=== PATIENT | male | born 1940 | race Caucasian/White ===

== ENCOUNTER 2018-10-16 04:32 | Observation (INO) | payer MEDICARE, OTHER ==
[2018-10-16 05:44] LABS: BASOPHIL % 0.2 % (0.0-0.4); Basophil (Absolute #) 0.01 (0-0.4); Eosinophil % 1.1 % (0.00-5.0); Eosinophil (Absolute #) 0.05 (0-0.5); Granulocyte Absolute (ANC) 3.12 (1.4-6.9); Granulocytes % 71.5 % (36.0-66.0); Hematocrit 40.6 % (42-50); Hemoglobin 13.4 gm/dl (12.5-18.0); Lymphocyte (Absolute #) 0.63 (1.0-4.6); Lymphocytes % 14.4 % (24.0-44.0); Mean Corpuscular Hemoglobin 27.4 pg (26-32); Mean Platelet Volume 9.9 fl (6-9.5); Monocyte (Absolute #) 0.56 (0.0-1.3); Monocytes % 12.8 % (0.0-12.0); Platelet Count 206 K/mm3 (150-450); Red Blood Count 4.89 M/mm3 (4.1-5.6); Red Cell Distribution Width 16.7 % (11.5-14.0); White Blood Count 4.4 K/mm3 (4.0-10.5)
[2018-10-16 05:52] LABS: Appearance CLEAR (CLEAR); Bilirubin NEGATIVE (NEGATIVE); Blood NEGATIVE Ery/ul (0-5); Glucose NEGATIVE (NEGATIVE); Ketones SMALL (NEGATIVE); Leukocyte Esterase NEGATIVE (NEGATIVE); Mucus SLIGHT /HPF (NEGATIVE); Nitrite NEGATIVE (NEGATIVE); Protein,Urine Dip NEGATIVE (Negative); Specific Gravity 1.016 (1.005-1.025); Urobilinogen 2 mg/dL (0-1)
[2018-10-16 05:52] LABS: ALBUMIN 4.2 g/dL (3.5-5.0); ALKALINE PHOSPHATASE 88 U/L (38-126); ANION GAP 13.6 MEQ/L (5-15); BLOOD UREA NITROGEN 16 mg/dL (9-20); CHLORIDE 97 mmol/L (98-107); Calcium 9.3 mg/dL (8.4-10.2); Carbon Dioxide 28 mmol/L (22-30); Creatinine 1 0.74 mg/dL (0.66-1.25); Glucose 105 mg/dL (74-106); SGOT/AST 22 U/L (17-59); SGPT/ALT 12 U/L (0-50); SODIUM 135 mmol/L (137-145); Total Protein 7.5 g/dL (6.3-8.2)
--- NOTE | 2018-10-16 06:55 | ERPHSYRPT ---
- History of Present Illness Source: patient Exam Limitations: clinical condition Patient Subjective Stated Complaint: patient was found on bathroom floor had soiled himself nad shirt covered in urine has no memeory of getting in there girlfriend says he has dementia states yesterday he was driving and forgot where he was and what he was doing Triage Nursing Assessment: patient able to answer questions appropriately, states he doesnt remember going to bathroom or how he ended up on floor not sure if he hit his head, no bumps bruises or bleeding noted, skin cool and dry lots of areas of flaky dry skin but it is intact, patient covered in fesces and urine when brought in by EMS states he doesnt know what happened, caregiver states she is unable to care for him he has become weaker and is romaing at nite nad she cannot get him up when falls or move him by herself. pulses present bilateral radius and pedal, lung sounds clear , diminished , bowel sounds present x4, hand claims examiner equal bialteral smile symetrical, trackign and pupils [email or web address]. Timing/Duration: today Severity: mild Character of Deficits: none Deficits: no difficulties Baseline Gait: walks w/o assistance Associated Symptoms: confusion Hx Tetanus, Diphtheria Vaccination/Date Given: Yes Hx Influenza Vaccination/Date Given: No Hx Pneumococcal Vaccination/Date Given: No Immunizations Up to Date: Yes <ORTEGA MCKEON - Last Filed: 10/16/18 06:38> <ELLIS STAUFFER - Last Filed: 10/16/18 07:32> - History of Present Illness Time Seen by Provider: 10/16/18 04:50 Physician History: PATIENT WITH A HISTORY OF DEMENTIA OVER THE PAST 4 YEARS AND SEIZURE DISORDER WAS FOUND ON BATHROOM FLOOR COVERED IN URINE. HAS INCREASING CONFUSION OVER THE PAST WEEK. DENIES HEADACHE OR NECK PAIN. STATES HE IS UNSURE HOW HE ARRIVED ON THE FLOOR (ORTEGA MCKEON) Allergies/Adverse Reactions: No Known Drug Allergies Allergy (Verified 10/16/18 07:30) Home Medications: Aspirin 325 mg PO DAILY 12/21/14 [History] - Review of Systems Constitutional: No Fever, No Chills Eyes: No Symptoms Ears, Nose, & Throat: No Symptoms Respiratory: No Symptoms, No Cough, No Dyspnea Cardiac: No Symptoms, No Chest Pain, No Edema, No Syncope Abdominal/Gastrointestinal: No Symptoms, No Abdominal Pain, No Nausea, No Vomiting, No Diarrhea Genitourinary Symptoms: No Symptoms, No Dysuria Musculoskeletal: No Symptoms, No Back Pain, No Neck Pain Skin: No Rash Neurological: No Symptoms, No Dizziness, No Focal Weakness, No Sensory Changes Psychological: No Symptoms Endocrine: No Symptoms All Other Systems: Reviewed and Negative <ORTEGA MCKEON - Last Filed: 10/16/18 06:38> - Past Medical History Pertinent Past Medical History: No Neurological History: Seizures - Past Surgical History Past Surgical History: No - Social History Smoking Status: Current every day smoker How long have you smoked: 53 Exposure to second hand smoke: Yes Drug Use: other Patient Lives Alone: No <ORTEGA MCKEON Filed: 10/16/18 06:38> - Given Coma Scale Best Eye Response (Given): (4) open spontaneously Best Verbal Response (Given): (5) oriented Best Motor Response (Given): (6) obeys commands Kev Total: 15 - Physical Exam General Appearance: no apparent distress Eye Exam: bilateral eye: normal inspection, PERRL, EOMI Ears, Nose, Throat Exam: normal ENT inspection Neck Exam: normal inspection, non-tender, supple Respiratory: normal breath sounds, lungs clear, airway intact, No respiratory distress Cardiovascular: regular rate/rhythm Gastrointestinal: soft, normal bowel sounds, No tenderness, No distention Back Exam: normal inspection, normal range of motion Extremity Exam: normal inspection, normal range of motion, other (FULL RANGE OF MOTION BILAT HIPS WITHOUT PAIN, NONTENDER GREATER TROCHANTER), No pedal edema Peripheral Pulses: carotid (R): 2+, 0, carotid (L): 2+, 0, femoral (R): 2+, 0, femoral (L): 2+, 0, dorsalis-pedis (R): 2+, 0, dorsalis-pedis (L): 2+, 0 Mental Status: alert, cooperative (APPROPRIATE) transmission mechanic Exam: normal hearing Coordination/Gait: normal finger to nose, normal gait Motor/Sensory: no motor deficit DTR: bicep (R): 2+, bicep (L): 2+, tricep (R): 2+, tricep (L): 2+, knee (R): 2+ , knee (L): 2+, ankle (R): 2+, ankle (L): 2+ Skin Exam: normal color SpO2 Interpretation: normal SpO2: 96 <MIKEORTEGA MIR - Last Filed: 10/16/18 06:38> - Nursing Vital Signs Nursing Vital Signs: Initial Vital Signs Temperature 98.4 F 10/16/18 04:33 Pulse Rate 70 10/16/18 04:33 Respiratory Rate 20 10/16/18 04:33 Blood Pressure 180/119 10/16/18 04:33 O2 Sat by Pulse Oximetry 97 10/16/18 04:33 Pain Scale Pain Intensity 0 - Radiology Exams Chest X-ray Interpretation: Interpreted by me (COPD, NO EVIDENCE OF INFILTRATES) <MIKEORTEGA - Last Filed: 10/16/18 06:38> Ordered Tests: Active Orders 24 hr Category Date Time Status [employer] STAT Care 10/16/18 05:17 Active Cath for Specimen-Straight STAT Care 10/16/18 05:17 Active EKG-ER Only STAT Care 10/16/18 05:16 Active IV Insertion STAT Care 10/16/18 05:16 Active CERVICAL SPINE WO CONTRAST [CT] Stat Exams 10/16/18 05:19 Taken CHEST 1 VIEW (PORTABLE) Stat Exams 10/16/18 06:09 Taken HEAD WITHOUT CONTRAST [CT] Stat Exams 10/16/18 05:17 Taken CBC W DIFF Stat Lab 10/16/18 05:40 Completed CMP Stat Lab 10/16/18 05:40 Completed UA W/RFX UR CULTURE Stat Lab 10/16/18 05:30 Completed Transfer Order Routine Transfer 10/16/18 Ordered Lab/Rad Data: Laboratory Result Diagrams 10/16/18 05:40 10/16/18 05:40 Laboratory Results 10/16/18 10/16/18 10/16/18 Range/Units Unknown 05:40 05:40 WBC 4.4 (4.0-10.5) K/mm3 RBC 4.89 (4.1-5.6) M/mm3 Hgb 13.4 (12.5-18.0) gm/dl Hct 40.6 L (42-50) % MCV 83.0 (78-100) fl MCH 27.4 (26-32) pg MCHC 33.0 (32-36) g/dl RDW 16.7 H (11.5-14.0) % Plt Count 206 (150-450) K/mm3 MPV 9.9 H (6-9.5) fl Gran % 71.5 H (36.0-66.0) % Eos # (Auto) 0.05 (0-0.5) Absolute Lymphs (auto) 0.63 L (1.0-4.6) Absolute Monos (auto) 0.56 (0.0-1.3) Lymphocytes % 14.4 L (24.0-44.0) % Monocytes % 12.8 H (0.0-12.0) % Eosinophils % 1.1 (0.00-5.0) % Basophils % 0.2 (0.0-0.4) % Absolute Granulocytes 3.12 (1.4-6.9) Basophils # 0.01 (0-0.4) Sodium 135 L (137-145) mmol/L Potassium 4.0 (3.5-5.1) mmol/L Chloride 97 L (98-107) mmol/L Carbon Dioxide 28 (22-30) mmol/L Anion Gap 13.6 (5-15) MEQ/L BUN 16 (9-20) mg/dL Creatinine 0.74 (0.66-1.25) mg/dL Estimated GFR > 60.0 ML/MIN Glucose 105 (74-106) mg/dL Calcium 9.3 (8.4-10.2) mg/dL Total Bilirubin 0.70 (0.2-1.3) mg/dL AST 22 (17-59) U/L ALT 12 (0-50) U/L Alkaline Phosphatase 88 (38-126) U/L Serum Total Protein 7.5 (6.3-8.2) g/dL Albumin 4.2 (3.5-5.0) g/dL Urine Color (YELLOW) Urine Appearance (CLEAR) Urine pH (5-6) Ur Specific [place] (1.005-1.025) Urine Protein (Negative) Urine Ketones (NEGATIVE) Urine Blood (0-5) Gustavo/ul Urine Nitrite (NEGATIVE) Urine Bilirubin (NEGATIVE) Urine Urobilinogen (0-1) mg/dL Ur Leukocyte Esterase (NEGATIVE) Urine WBC (Auto) (0-5) /HPF Urine RBC (Auto) (0-2) /HPF U Epithel Cells (Auto) (FEW) /HPF Urine Bacteria (Auto) (NEGATIVE) /HPF Urine Mucus (Auto) (NEGATIVE) /HPF Urine Culture Reflexed (NO) Urine Glucose (NEGATIVE) mg/dL Phenytoin 8.0 L (10-20) ug/mL 10/16/18 Range/Units 05:30 WBC (4.0-10.5) K/mm3 RBC (4.1-5.6) M/mm3 Hgb (12.5-18.0) gm/dl Hct (42-50) % MCV (78-100) fl MCH (26-32) pg MCHC (32-36) g/dl RDW (11.5-14.0) % Plt Count (150-450) K/mm3 MPV (6-9.5) fl Gran % (36.0-66.0) % Eos # (Auto) (0-0.5) Absolute Lymphs (auto) (1.0-4.6) Absolute Monos (auto) (0.0-1.3) Lymphocytes % (24.0-44.0) % Monocytes % (0.0-12.0) % Eosinophils % (0.00-5.0) % Basophils % (0.0-0.4) % Absolute Granulocytes (1.4-6.9) Basophils # (0-0.4) Sodium (137-145) mmol/L Potassium (3.5-5.1) mmol/L Chloride (98-107) mmol/L Carbon Dioxide (22-30) mmol/L Anion Gap (5-15) MEQ/L BUN (9-20) mg/dL Creatinine (0.66-1.25) mg/dL Estimated GFR ML/MIN Glucose (74-106) mg/dL Calcium (8.4-10.2) mg/dL Total Bilirubin (0.2-1.3) mg/dL AST (17-59) U/L ALT (0-50) U/L Alkaline Phosphatase (38-126) U/L Serum Total Protein (6.3-8.2) g/dL Albumin (3.5-5.0) g/dL Urine Color YELLOW (YELLOW) Urine Appearance CLEAR (CLEAR) Urine pH 6.0 (5-6) Ur Specific [place] 1.016 (1.005-1.025) Urine Protein NEGATIVE (Negative) Urine Ketones SMALL (NEGATIVE) Urine Blood NEGATIVE (0-5) Gustavo/ul Urine Nitrite NEGATIVE (NEGATIVE) Urine Bilirubin NEGATIVE (NEGATIVE) Urine Urobilinogen 2 (0-1) mg/dL Ur Leukocyte Esterase NEGATIVE (NEGATIVE) Urine WBC (Auto) NONE (0-5) /HPF Urine RBC (Auto) NONE (0-2) /HPF U Epithel Cells (Auto) NONE (FEW) /HPF Urine Bacteria (Auto) NONE (NEGATIVE) /HPF Urine Mucus (Auto) SLIGHT (NEGATIVE) /HPF Urine Culture Reflexed NO (NO) Urine Glucose NEGATIVE (NEGATIVE) mg/dL Phenytoin (10-20) ug/mL - Progress Discussed with Dr.: Patsy (DISCUSSED WITH DR BOLANOS AT 0705 FOR OBSERVATION) <ORTEGA MCKEON - Last Filed: 10/16/18 06:38> - Progress Progress: improved Counseled pt/family regarding: lab results, diagnosis, rad results <ELLIS STAUFFER - Last Filed: 10/16/18 07:32> - Progress Progress Note: 10/16/18 07:05 PATIENT CARE ENDORSED TO DR STAUFFER (ORTEGA MCKEON) 10/16/18 07:22 ct scan head-no acute intracranial pathology (ELLIS STAUFFER) - Departure Departure Disposition: Observation Critical Care Time: No <ORTEGA MCKEON - Last Filed: 10/16/18 06:38> - Departure Time of Disposition: 07:23 <ELLIS STAUFFER - Last Filed: 10/16/18 07:32> - Departure Clinical Impression: Altered mental status Condition: Stable Referrals: MALLORY BOLANOS MD [Primary Care Provider] -
[2018-10-16] MEDS ORDERED: Zofran 4 MG/2 ML VIAL IV PRN (08:00)
[2018-10-16] MEDS ORDERED: TYLENOL 325 MG PO PRN (08:00)
--- NOTE | 2018-10-16 08:57 | XRAY ---
Indication: Found on bathroom floor. Possible fall. Multiple contiguous axial images obtained through the head without contrast. Comparison: February 12, 2015. Stable age-appropriate global atrophy, mild periventricular degenerative micro-ischemia bilaterally, remote right external capsule lacunar infarct, and remote left brain stem lacunar infarct. No acute intracranial hemorrhage, abnormal extra-axial fluid collection, or mass effect. Fourth ventricle is midline. Bony calvarium intact. Visualized paranasal sinuses and mastoid air cells are clear. Interval enlarging partially visualized 2.6 cm right posterior neck sebaceous cyst. Impression: Again nonacute senile brain including remote lacunar infarcts as detailed. Incidental right neck sebaceous cyst. Comment: Preliminary interpretation was made by C. No discrepancy. CT DI 60.26
--- NOTE | 2018-10-16 08:59 | XRAY ---
Indication: Found on bathroom floor. Possible fall. Multiple contiguous axial images obtained through the cervical spine. Sagittal and coronal reformatted images obtained. Comparison: None Age-related osteopenia. Axial images negative for acute fracture, suspicious bony lesions, or spinal canal stenosis. Mild/moderate multilevel degenerative endplate spurring and mild multilevel bilateral degenerative facet hypertrophy. Sagittal and coronal reformatted images demonstrates normal alignment with multilevel disc space narrowing. No acute compression fracture, subluxation, or jumped facet. Normal appearing craniocervical junction. Visualized noncontrasted soft tissues demonstrates mild scattered carotid calcifications bilaterally. Also markedly enlarged left thyroid lobe. Lung apices unremarkable. Impression: 1. Negative for acute fracture/subluxation. 2. Osteopenia and multilevel degenerative changes. 3. Incidental enlarged left thyroid lobe. Sonogram may yield further information if clinically warranted. Comment: Preliminary interpretation was made by [facility]. No discrepancy. CT DI 21.40
--- NOTE | 2018-10-16 09:02 | XRAY ---
Indication: Cough. Possible fall. Comparison: December 21, 2014. Portable apical lordotic chest again hyperinflated without focal infiltrate, consolidation, or large effusion. Heart is not enlarged. Descending aorta remains mildly tortuous. Bony thorax intact again with mild osteopenia and degenerative changes. Impression: Nonacute hyperinflated chest with chronic features.
--- NOTE | 2018-10-16 09:23 | PCM.HP ---
History of Present Illness - Chief Complaint Chief Complaint: altered mental status for 1 day History of Present Illness: is a 77 year old male.patient was found on bathroom floor had soiled himself nad shirt covered in urine has no memeory of getting in there girlfriend says he has dementia states yesterday he was driving and forgot where he was and what he was doing - Review of Systems Constitutional: Lethargy, Weakness, No Fever, No Chills Eyes: No Symptoms Ears, Nose, & Throat: No Symptoms Respiratory: No Cough, No Short Of Breath Cardiac: No Chest Pain, No Edema, No Syncope Abdominal/Gastrointestinal: No Abdominal Pain, No Nausea, No Vomiting, No Diarrhea Genitourinary Symptoms: No Dysuria Musculoskeletal: No Back Pain, No Neck Pain Skin: No Rash Neurological: No Dizziness, No Focal Weakness, No Sensory Changes Psychological: No Symptoms Endocrine: No Symptoms Hematologic/Lymphatic: No Symptoms Immunological/Allergic: No Symptoms Medications & Allergies Home Medications: Home Medication List Aspirin 325 mg PO DAILY 12/21/14 [History Confirmed 10/16/18] Clopidogrel Bisulfate 75 mg [PLAVIX 75 MG Tablet] 75 mg PO DAILY #30 tablet 12/23/14 [Rx Confirmed 10/16/18] Phenytoin Sod Extended 100 mg* [Dilantin 100 MG] 100 mg PO TID 10/16/18 [ History Confirmed 10/16/18] Allergies/Adverse Reactions: Allergies Allergy/AdvReac Type Severity Reaction Status Date / Time No Known Drug Allergies Allergy Verified 10/16/18 07:30 - Past Medical History Past Medical History: No Neurological History: Seizures ENT History: No Pertinent History Cardiac History: Coronary Artery Disease Respiratory History: No Pertinent History Endocrine Medical History: No Pertinent History Musculoskelatal History: No Pertinent History GI Medical History: No Pertinent History History: No Pertinent History Pyscho-Social History: No Pertinent History Male Reproductive Disorders: No Pertinent History - Past Surgical History Past Surgical History: No Neuro Surgical History: No Pertinent History Cardiac History: No Pertinent History Respiratory Surgery: No Pertinent History GI Surgical History: No Pertinent History Genitourinary Surgical Hx: No Pertinent History Musculskeletal Surgical Hx: No Pertinent History Male Surgical History: No Pertinent History - Social History Smoking Status: Current every day smoker How long have you smoked: 53 Exposure to second hand smoke: Yes Alcohol: Daily Drug Use: other - Physical Exam Vital Signs: Vital Signs - 24 hr Temp Pulse Resp BP Pulse Ox 10/16/18 08:18 97.9 F 73 19 194/96 92 L 10/16/18 08:00 97.9 F 73 19 194/96 92 L 10/16/18 07:13 67 16 182/94 96 10/16/18 07:05 96 10/16/18 06:13 70 18 154/92 96 10/16/18 04:33 98.4 F 70 20 180/119 97 General Appearance: mild distress, alert Neurologic Exam: alert, oriented x 3, cooperative, normal mood/affect, nml cerebellar function, nml station & gait, sensation nml, No motor deficits Eye Exam: PERRL/EOMI, eyes nml inspection Ears, Nose, Throat Exam: normal ENT inspection, TMs normal, pharynx normal, moist mucous membranes Neck Exam: normal inspection, non-tender, supple, full range of motion Respiratory Exam: normal breath sounds, lungs clear, No respiratory distress Cardiovascular Exam: regular rate/rhythm, normal heart sounds, normal peripheral pulses Gastrointestinal/Abdomen Exam: soft, normal bowel sounds, No tenderness, No mass Back Exam: normal inspection, normal range of motion, No CVA tenderness, No vertebral tenderness Extremity Exam: normal inspection, normal range of motion, pelvis stable Skin Exam: normal color, warm, dry, No rash Lymphatic Exam: No adenopathy Results - Labs Lab/Micro Results: Lab Results-Last 24 Hours 10/16/18 10/16/18 10/16/18 Range/Units 05:30 05:40 05:40 WBC 4.4 (4.0-10.5) K/mm3 RBC 4.89 (4.1-5.6) M/mm3 Hgb 13.4 (12.5-18.0) gm/dl Hct 40.6 L (42-50) % MCV 83.0 (78-100) fl MCH 27.4 (26-32) pg MCHC 33.0 (32-36) g/dl RDW 16.7 H (11.5-14.0) % Plt Count 206 (150-450) K/mm3 MPV 9.9 H (6-9.5) fl Gran % 71.5 H (36.0-66.0) % Eos # (Auto) 0.05 (0-0.5) Absolute Lymphs (auto) 0.63 L (1.0-4.6) Absolute Monos (auto) 0.56 (0.0-1.3) Lymphocytes % 14.4 L (24.0-44.0) % Monocytes % 12.8 H (0.0-12.0) % Eosinophils % 1.1 (0.00-5.0) % Basophils % 0.2 (0.0-0.4) % Absolute Granulocytes 3.12 (1.4-6.9) Basophils # 0.01 (0-0.4) Sodium 135 L (137-145) mmol/L Potassium 4.0 (3.5-5.1) mmol/L Chloride 97 L (98-107) mmol/L Carbon Dioxide 28 (22-30) mmol/L Anion Gap 13.6 (5-15) MEQ/L BUN 16 (9-20) mg/dL Creatinine 0.74 (0.66-1.25) mg/dL Estimated GFR > 60.0 ML/MIN Glucose 105 (74-106) mg/dL Calcium 9.3 (8.4-10.2) mg/dL Total Bilirubin 0.70 (0.2-1.3) mg/dL AST 22 (17-59) U/L ALT 12 (0-50) U/L Alkaline Phosphatase 88 (38-126) U/L Serum Total Protein 7.5 (6.3-8.2) g/dL Albumin 4.2 (3.5-5.0) g/dL Urine Color YELLOW (YELLOW) Urine Appearance CLEAR (CLEAR) Urine pH 6.0 (5-6) Ur Specific [place] 1.016 (1.005-1.025) Urine Protein NEGATIVE (Negative) Urine Ketones SMALL (NEGATIVE) Urine Blood NEGATIVE (0-5) Gustavo/ul Urine Nitrite NEGATIVE (NEGATIVE) Urine Bilirubin NEGATIVE (NEGATIVE) Urine Urobilinogen 2 (0-1) mg/dL Ur Leukocyte Esterase NEGATIVE (NEGATIVE) Urine WBC (Auto) NONE (0-5) /HPF Urine RBC (Auto) NONE (0-2) /HPF U Epithel Cells (Auto) NONE (FEW) /HPF Urine Bacteria (Auto) NONE (NEGATIVE) /HPF Urine Mucus (Auto) SLIGHT (NEGATIVE) /HPF Urine Culture Reflexed NO (NO) Urine Glucose NEGATIVE (NEGATIVE) mg/dL Phenytoin (10-20) ug/mL 10/16/18 Range/Units Unknown WBC (4.0-10.5) K/mm3 RBC (4.1-5.6) M/mm3 Hgb (12.5-18.0) gm/dl Hct (42-50) % MCV (78-100) fl MCH (26-32) pg MCHC (32-36) g/dl RDW (11.5-14.0) % Plt Count (150-450) K/mm3 MPV (6-9.5) fl Gran % (36.0-66.0) % Eos # (Auto) (0-0.5) Absolute Lymphs (auto) (1.0-4.6) Absolute Monos (auto) (0.0-1.3) Lymphocytes % (24.0-44.0) % Monocytes % (0.0-12.0) % Eosinophils % (0.00-5.0) % Basophils % (0.0-0.4) % Absolute Granulocytes (1.4-6.9) Basophils # (0-0.4) Sodium (137-145) mmol/L Potassium (3.5-5.1) mmol/L Chloride (98-107) mmol/L Carbon Dioxide (22-30) mmol/L Anion Gap (5-15) MEQ/L BUN (9-20) mg/dL Creatinine (0.66-1.25) mg/dL Estimated GFR ML/MIN Glucose (74-106) mg/dL Calcium (8.4-10.2) mg/dL Total Bilirubin (0.2-1.3) mg/dL AST (17-59) U/L ALT (0-50) U/L Alkaline Phosphatase (38-126) U/L Serum Total Protein (6.3-8.2) g/dL Albumin (3.5-5.0) g/dL Urine Color (YELLOW) Urine Appearance (CLEAR) Urine pH (5-6) Ur Specific [place] (1.005-1.025) Urine Protein (Negative) Urine Ketones (NEGATIVE) Urine Blood (0-5) Gustavo/ul Urine Nitrite (NEGATIVE) Urine Bilirubin (NEGATIVE) Urine Urobilinogen (0-1) mg/dL Ur Leukocyte Esterase (NEGATIVE) Urine WBC (Auto) (0-5) /HPF Urine RBC (Auto) (0-2) /HPF U Epithel Cells (Auto) (FEW) /HPF Urine Bacteria (Auto) (NEGATIVE) /HPF Urine Mucus (Auto) (NEGATIVE) /HPF Urine Culture Reflexed (NO) Urine Glucose (NEGATIVE) mg/dL Phenytoin 8.0 L (10-20) ug/mL - Radiology Impressions Radiology Exams & Impressions: Radiology Procedures Category Date Time Status CERVICAL SPINE WO CONTRAST [CT] Stat Exams 10/16/18 05:19 Completed CHEST 1 VIEW (PORTABLE) Stat Exams 10/16/18 06:09 Completed HEAD WITHOUT CONTRAST [CT] Stat Exams 10/16/18 05:17 Completed Assessment/Plan (1) Altered mental status Current Visit: Yes Status: Acute Qualifiers: Altered mental status type: disorientation Qualified Code(s): R41.0 - Disorientation, unspecified Code(s): R41.82 - ALTERED MENTAL STATUS, UNSPECIFIED (2) Chronic cerebral ischemia Current Visit: No Status: Chronic Code(s): I67.82 - CEREBRAL ISCHEMIA
[2018-10-16] MEDS ORDERED: NON-FORMULARY ITEM (Aspirin [Aspirin] 325 MG) PO SCH (10:00)
[2018-10-16] MEDS: Sodium Chloride 0.9% 1000 ML 1,000 ML IV SCH (10:14)
[2018-10-16] MEDS: ENOXAPARIN SODIUM SQ SCH (10:54)
[2018-10-16] MEDS: Ecotrin 325 MG PO SCH (10:54)
[2018-10-16] MEDS: Dilantin 100 MG PO SCH ×3 (10:54→22:59)
[2018-10-16] MEDS: PLAVIX 75 MG Tablet PO SCH (10:55)
[2018-10-16] MEDS: Pepcid 20 MG PO SCH ×2 (10:55→22:59)
[2018-10-16] MEDS: Ativan 2 MG/1 ML VIAL IV PRN ×2 (18:51→22:59)
[2018-10-17] MEDS: Sodium Chloride 0.9% 1000 ML 1,000 ML IV SCH (03:57)
[2018-10-17 05:55] LABS: BASOPHIL % 0.2 % (0.0-0.4); Basophil (Absolute #) 0.01 (0-0.4); Eosinophil % 0.5 % (0.00-5.0); Eosinophil (Absolute #) 0.03 (0-0.5); Granulocyte Absolute (ANC) 4.26 (1.4-6.9); Granulocytes % 66.4 % (36.0-66.0); Hematocrit 38.2 % (42-50); Hemoglobin 12.5 gm/dl (12.5-18.0); Lymphocyte (Absolute #) 1.23 (1.0-4.6); Lymphocytes % 19.2 % (24.0-44.0); Mean Corpuscular Hemoglobin 27.2 pg (26-32); Mean Corpuscular Hgb Concent. 32.7 g/dl (32-36); Mean Platelet Volume 9.8 fl (6-9.5); Monocyte (Absolute #) 0.88 (0.0-1.3); Monocytes % 13.7 % (0.0-12.0); Platelet Count 178 K/mm3 (150-450); Red Cell Distribution Width 16.8 % (11.5-14.0); White Blood Count 6.4 K/mm3 (4.0-10.5)
[2018-10-17 06:03] LABS: ALBUMIN 3.4 g/dL (3.5-5.0); ALKALINE PHOSPHATASE 66 U/L (38-126); ANION GAP 8.3 MEQ/L (5-15); BLOOD UREA NITROGEN 19 mg/dL (9-20); CHLORIDE 102 mmol/L (98-107); Calcium 8.7 mg/dL (8.4-10.2); Carbon Dioxide 28 mmol/L (22-30); Creatinine 1 0.78 mg/dL (0.66-1.25); Glucose 108 mg/dL (74-106); Potassium 3.8 mmol/L (3.5-5.1); SGOT/AST 27 U/L (17-59); SGPT/ALT 11 U/L (0-50); SODIUM 135 mmol/L (137-145); Total Protein 6.3 g/dL (6.3-8.2)
[2018-10-17] MEDS: Pepcid 20 MG PO SCH (09:00)
[2018-10-17] MEDS: PLAVIX 75 MG Tablet PO SCH (09:00)
[2018-10-17] MEDS: Ecotrin 325 MG PO SCH (09:00)
[2018-10-17] MEDS: ENOXAPARIN SODIUM SQ SCH (09:00)
[2018-10-17] MEDS: Dilantin 100 MG PO SCH ×2 (09:00→15:13)
--- NOTE | 2018-10-17 12:10 | PCM.DS ---
Discharge Summary Date of Admission: 10/16/18 07:55 Admitting Physician: MALLORY BOLANOS Primary Care Provider: MALLORY BOLANOS Allergies Allergies No Known Drug Allergies Allergy (Verified 10/16/18 07:30) Hospital Summary - Hospital Course Hospital Course: Chief Complaint Diagnosis altered mental status for 1 day Allergies Allergy/AdvReac Type Severity Reaction Status Date / Time No Known Drug Allergies Allergy Verified 10/16/18 07:30 Vital Signs (Last 24 hours) Temp Pulse Resp BP Pulse Ox 10/17/18 07:39 98.8 F 84 22 138/82 96 10/17/18 04:00 98.9 F 66 17 150/74 92 L 10/17/18 00:15 102 F 90 17 138/69 90 L 10/16/18 15:59 99.1 F 86 19 185/80 90 L Home Medications Medication Instructions Recorded Confirmed Last Taken Type Phenytoin Sod Extended 100 mg* 100 mg PO TID 10/16/18 10/16/18 10/15/18 History [Dilantin 100 MG] Current Medications Generic Name Dose Route Start Last Admin Trade Name Freq PRN Reason Stop Dose Admin Acetaminophen 650 mg 10/16/18 08:00 10/17/18 00:24 Tylenol 325 Mg PO 11/15/18 07:59 650 mg Q6H PRN PRN Administration PAIN AND/OR FEVER Aspirin 325 mg 10/16/18 10:00 10/17/18 09:00 Ecotrin 325 Mg PO 11/15/18 09:59 325 mg DAILY LEW Administration Clopidogrel Bisulfate 75 mg 10/16/18 10:00 10/17/18 09:00 Plavix 75 Mg Tablet PO 11/15/18 09:59 75 mg DAILY LEW Administration Enoxaparin Sodium 40 mg 10/16/18 10:00 10/17/18 09:00 Enoxaparin Sodium SQ 11/15/18 09:59 40 mg DAILY LEW Administration Famotidine 20 mg 10/16/18 10:00 10/17/18 09:00 Pepcid 20 Mg PO 11/15/18 09:59 20 mg BID LEW Administration Sodium Chloride 1,000 mls @ 50 mls/hr 10/16/18 08:00 10/17/18 03:57 Sodium Chloride 0.9% 1000 Ml IV 11/15/18 07:59 50 mls/hr .Q20H LEW Administration Lorazepam 1 mg 10/16/18 08:00 10/16/18 18:51 Ativan 2 Mg/1 Ml Vial IV 11/15/18 07:59 1 mg Q4H PRN PRN Administration ANXIETY Ondansetron HCl 4 mg 10/16/18 08:00 Zofran 4 Mg/2 Ml Vial IV 11/15/18 07:59 Q6H PRN PRN NAUSEA/VOMITING Phenytoin Sodium 100 mg 10/16/18 10:00 10/17/18 09:00 Dilantin 100 Mg PO 11/15/18 09:59 100 mg TID LEW Administration Discontinued Medications Generic Name Dose Route Start Last Admin Trade Name Freq PRN Reason Stop Dose Admin Influenza Virus Vaccine 180 mcg 10/17/18 09:00 10/17/18 08:58 Fluzone High-Dose Syr IM 10/17/18 09:01 180 mcg .ONCE ONE Administration Intake & Output (Last 24 hours) 10/15/18 10/16/18 10/17/18 10/18/18 11:59 11:59 11:59 11:59 Intake Total 1403 Output Total 320 Balance 1083 Weight 81.647 kg 78 kg Microbiology Results (Last 24 hours) 10/16/18 05:30 Catherized Urine Culture - Preliminary NO GROWTH TO DATE Laboratory Results (Last 24 hours) 10/17/18 10/17/18 10/17/18 05:10 05:10 05:10 WBC 6.4 RBC 4.60 Hgb 12.5 Hct 38.2 L MCV 83.0 MCH 27.2 MCHC 32.7 RDW 16.8 H Plt Count 178 MPV 9.8 H Gran % 66.4 H Eos # (Auto) 0.03 Absolute Lymphs (auto) 1.23 Absolute Monos (auto) 0.88 Lymphocytes % 19.2 L Monocytes % 13.7 H Eosinophils % 0.5 Basophils % 0.2 Absolute Granulocytes 4.26 Basophils # 0.01 Sodium 135 L Potassium 3.8 Chloride 102 Carbon Dioxide 28 Anion Gap 8.3 BUN 19 Creatinine 0.78 Estimated GFR > 60.0 Glucose 108 H Calcium 8.7 Magnesium 2.0 Total Bilirubin 0.50 AST 27 ALT 11 Alkaline Phosphatase 66 Serum Total Protein 6.3 Albumin 3.4 L Orders (Last 24 hours) Category Date Time Status Discharge Routine Discharge 10/17/18 Ordered CBC W DIFF AM.LAB Lab 10/17/18 05:10 Completed CMP AM.LAB Lab 10/17/18 05:10 Completed MAGNESIUM Stat Lab 10/17/18 05:10 Completed Flu Vacc [id number](65Yr Up)/Pf [Fluzone High-Dose 2018- Med 10/17/18 09:00 Discontinued 19 Syr] 180 mcg IM .ONCE ONE Patient Care Notes (Last 24 hours) 10/17/18 01:34 Nursing Note by Irasema Griffin Temp 99.8F orally after PO tylenol. SEE EMAR. Initialized on 10/17/18 01:34 - END OF NOTE 10/17/18 00:19 Nursing Note by Irasema Griffin notified of Temp 102.0F orally. Doctor does not wish to draw any lactic/blood cultures or start any antibiotics at this time. Other vital signs wnl. No new orders received at this time other than to administer PRN tylenol and monitor temp with routine vitals. Will continue to monitor. Initialized on 10/17/18 00:19 - END OF NOTE 10/16/18 18:53 Nursing Note by Jacquelyn Holcomb pt becoming more agitated. not wanting to sit up in chair and not wanting to get back in bed. just standing in middle of room pulling at IV. while trying to get pt not to pull at iv tubing he made a motion as if to swing at me. finally was able to get pt back in bed, medicated with ativan 1mg iv. Initialized on 10/16/18 18:53 - END OF NOTE 10/16/18 17:37 Occupational Therapy Note by Kay Walker OT order received from . OTR performed chart review and coordinated with IDT and deferred to Physical Therapy. Mr. Garcia anticipated to discharge home tomorrow with Home Health Services and has been educated on recommended AD by Physical Therapy at this time. No further inpatient skilled OT services warranted for Mr. Garcia at this time. Initialized on 10/16/18 17:37 - END OF NOTE 10/16/18 17:00 (created 10/17/18 11:54) Case Management Note by aTty Hand SPOKE WITH PARAG, PT'S SON, VIA PHONE. PARAG REPORTS THAT PT WILL HAVE TO GO HOME WITH [facility], UNTIL HE CAN GET TO [facility] TO ASSESS PT'S SITUATION. REPORTS THAT IF PT'S MENTAL STATUS DOES NOT GET BETTER THEN HE WILL BE LOOKING AT POSSIBLY MOVING HIM TO [facility], WHICH IS PT'S SONS HOME [facility]. REPORTS THAT AT THIS TIME, HE FEELS THAT THIS IS THE BEST DISCHARGE PLAN. REPORTS THAT HE WILL CALL PT'S GIRLFRIEND, BELLA AND DISCUSS. REPORTS THAT PT AND BELLA HAVE LIVED TOGETHER FOR 20+ YEARS. Initialized on 10/17/18 11:54 - END OF NOTE 10/16/18 15:50 (created 10/17/18 11:50) Case Management Note by Taty Hand SPOKE WITH PT'S GIRLFRIEND REGARDING NEEDS THAT PT HAS ON DISCHARGE. GIRLFRIEND , BELLA, REPORTS THAT HE HAS INCREASINGLY BECOME MORE CONFUSED AND WEAK. REPORTS THAT SHE FEELS THAT HE NEEDS TO GO TO LONG TERM FOR REHAB STAY. DISCUSSED THAT PT IS OBSERVATION STATUS, DOES NOT MEET INPT CRITERIA - AND [facility] WOULD NOT PAY FOR REHAB STAY. BELLA REPORTS THAT THEY CAN NOT PAY FOR REHAB. DISCUSSED HOME WITH HOME HEALTH CARE. BELLA REPORTS THAT SHE DOES NOT FEEL THAT THIS WILL BE ENOUGH SUPPORT. REPORTS THAT SHE WILL TALK WITH PARAG, PT'S SON, WHO WILL BE COMING TO [facility] THIS WEEKEND. Initialized on 10/17/18 11:50 - END OF NOTE - Vitals & Intake/Output Vital Signs: Vital Signs Temperature 98.8 F 10/17/18 07:39 Pulse Rate 84 10/17/18 07:39 Respiratory Rate 22 10/17/18 07:39 Blood Pressure 138/82 10/17/18 07:39 O2 Sat by Pulse Oximetry 96 10/17/18 07:39 Intake & Output: Intake & Output 10/15/18 10/16/18 10/17/18 10/18/18 11:59 11:59 11:59 11:59 Intake Total 1403 Output Total 320 Balance 1083 Weight 81.647 kg 78 kg - Lab Result Diagrams: 10/17/18 05:10 10/17/18 05:10 Lab Results-Last 24 Hrs: Lab Results-Last 24 Hours 0310/17/18 10/17/18 Range/Units 05:10 05:10 05:10 WBC 6.4 (4.0-10.5) K/mm3 RBC 4.60 (4.1-5.6) M/mm3 Hgb 12.5 (12.5-18.0) gm/dl Hct 38.2 L (42-50) % MCV 83.0 (78-100) fl MCH 27.2 (26-32) pg MCHC 32.7 (32-36) g/dl RDW 16.8 H (11.5-14.0) % Plt Count 178 (150-450) K/mm3 MPV 9.8 H (6-9.5) fl Gran % 66.4 H (36.0-66.0) % Eos # (Auto) 0.03 (0-0.5) Absolute Lymphs (auto) 1.23 (1.0-4.6) Absolute Monos (auto) 0.88 (0.0-1.3) Lymphocytes % 19.2 L (24.0-44.0) % Monocytes % 13.7 H (0.0-12.0) % Eosinophils % 0.5 (0.00-5.0) % Basophils % 0.2 (0.0-0.4) % Absolute Granulocytes 4.26 (1.4-6.9) Basophils # 0.01 (0-0.4) Sodium 135 L (137-145) mmol/L Potassium 3.8 (3.5-5.1) mmol/L Chloride 102 (98-107) mmol/L Carbon Dioxide 28 (22-30) mmol/L Anion Gap 8.3 (5-15) MEQ/L BUN 19 (9-20) mg/dL Creatinine 0.78 (0.66-1.25) mg/dL Estimated GFR > 60.0 ML/MIN Glucose 108 H (74-106) mg/dL Calcium 8.7 (8.4-10.2) mg/dL Magnesium 2.0 (1.6-2.3) mg/dL Total Bilirubin 0.50 (0.2-1.3) mg/dL AST 27 (17-59) U/L ALT 11 (0-50) U/L Alkaline Phosphatase 66 (38-126) U/L Serum Total Protein 6.3 (6.3-8.2) g/dL Albumin 3.4 L (3.5-5.0) g/dL Micro Results-Entire Visit: Microbiology 10/16/18 05:30 Urine Culture - Preliminary Catherized NO GROWTH TO DATE - Radiology Exams Ordered Rad Exams-Entire Visit: Radiology Procedures Category Date Time Status CERVICAL SPINE WO CONTRAST [CT] Stat Exams 10/16/18 05:19 Completed CHEST 1 VIEW (PORTABLE) Stat Exams 10/16/18 06:09 Completed HEAD WITHOUT CONTRAST [CT] Stat Exams 10/16/18 05:17 Completed - Procedures and Test Procedures and Tests throughout Hospitalization: Therapy Orders & Screens 10/16/18 08:00 OT Eval and Treat ( Order) ROUTINE Comment: Consulting Provider: Physician Instructions: Reason For Exam: PT Eval & Treat ( Order) ROUTINE Reason for Eval:: strengthening and transfer Diagnosis: altered mental status 10/16/18 08:27 PT Screen per Nursing Assess ONCE Comment: Protocol Order Physician Instructions: Greater than 3 points order PT Admission Screenin Reason For Exam: Triggered on Admission Diagnosis: altered mental status Open Wound/Cellutlitis/Pressure Ulcers: No Acute Fx/ORIF/Change in wt bearing status: No Severe MUSCULOSKELETAL pain: No ADL Dysfunction: Yes Acute CVA w/Hemiparesis/Hemiplegia: No Decreased Functional Mobility/Strength: Yes Sprain/Strain: No Acute Post-op Mobility Dysfunction: No Total Points: 4 Discharge Exam General Appearance: no apparent distress, alert Neurologic Exam: alert, oriented x 3, cooperative, normal mood/affect, nml cerebellar function, sensation nml, No motor deficits Skin Exam: normal color, warm, dry Eye Exam: PERRL, EOMI, eyes nml inspection Ears, Nose, Throat Exam: normal ENT inspection, pharynx normal, moist mucous membranes Neck Exam: normal inspection, non-tender, supple, full range of motion Respiratory Exam: normal breath sounds, lungs clear, No respiratory distress Cardiovascular Exam: regular rate/rhythm, normal heart sounds Gastrointestinal/Abdomen Exam: soft, No tenderness, No mass Extremity Exam: normal inspection, normal range of motion Back Exam: normal inspection, normal range of motion, No CVA tenderness, No vertebral tenderness Male Genitalia Exam: deferred Rectal Exam: deferred Final Diagnosis/Problem List - Final Discharge Diagnosis/Problem (1) Altered mental status Current Visit: Yes Status: Acute Code(s): R41.82 - ALTERED MENTAL STATUS, UNSPECIFIED (2) Chronic cerebral ischemia Current Visit: Yes Status: Chronic Code(s): I67.82 - CEREBRAL ISCHEMIA - Discharge Discharge Date: 10/17/18 Disposition: Home, Self-Care Condition: Stable Prescriptions: Continue Aspirin 325 mg PO DAILY Clopidogrel Bisulfate 75 mg [PLAVIX 75 MG Tablet] 75 mg PO DAILY #30 tablet Phenytoin Sod Extended 100 mg* [Dilantin 100 MG] 100 mg PO TID Instructions: Altered Mental Status (DC) Additional Instructions: [facility] WILL CALL YOU TO ARRANGE YOUR FIRST VISIT. NO DRIVING, NO SMOKING. Follow up with: MALLORY BOLANOS MD [Primary Care Provider] - 10/25/18 9:15 am (at [place])
[2018-10-17 12:18] VITALS: BP 126/80; PULSE 86; O2SAT 95
== END 2018-10-17 16:15 | disposition home health service (06) ==
LOC: ED 04:32 → ICU 07:55
PROVIDERS: ADMIT General Practice; ATTEND General Practice
DX: R41.82 Altered mental status, unspecified (principal); I67.82 Cerebral ischemia; R53.83 Other fatigue; R53.1 Weakness; Z79.01 Long term (current) use of anticoagulants; Z79.899 Other long term (current) drug therapy; W19.XXXA Unspecified fall, initial encounter; Y92.002 Bathroom of unspecified non-institutional (private) residence as the place of occurrence of the external cause; F17.200 Nicotine dependence, unspecified, uncomplicated
CPT/HCPCS: 36000; 36415; 70450; 71045; 72125; 80053; 80185; 81001; 83735; 85025; 87086; 93005; 93041; 97161; 97530; 99285; G0008; G0378; P9612; 90662; J1650; J2060; A9270-GY

== ENCOUNTER 2018-12-23 16:07 | Observation (INO) | payer MEDICARE, OTHER ==
[2018-12-23] MEDS ORDERED: Sodium Chloride 0.9% 1000 ML 1,000 ML IV STA (16:26)
[2018-12-23] MEDS ORDERED: Sodium Chloride 0.9% 1000 ML 1,000 ML ONE (16:30)
--- NOTE | 2018-12-23 16:41 | ERPHSYRPT ---
- History of Present Illness Time Seen by Provider: 12/23/18 16:38 Source: EMS, detention records Exam Limitations: no limitations Patient Subjective Stated Complaint: EMS REPORTS THAT [facility] CALLED THEM D/T PT FALLING MULTIPLE TIMES TODAY AND URINATING ON SELF WHILE DOWN ON FLOOR. PT REPORTS PAIN TO LEFT LEG, UNABLE TO RATE OR SPECIFY LOCATION. Triage Nursing Assessment: ORIENTED TO NAME. UNABLE TO STATE YEAR OR PLACE OTHER THAN TOWN. WITHDRAWS TO PAIN WITH LEFT LEG. DENIES OTHER PAIN. Physician History: 78-year-old male with significant past medical history of seizure disorder and earlier examined dementia was living at detention where detention nurse found him confused and having a multiple falls in last 2-3 days. So patient was brought into the emergency room. Patient is alert, awake, oriented to less and person. Patient denies any complaint. Timing/Duration: day(s) (2-3 days) Associated Symptoms: denies symptoms Allergies/Adverse Reactions: No Known Drug Allergies Allergy (Verified 10/16/18 07:30) Home Medications: Aspirin 325 mg PO DAILY 12/21/14 [History] Phenytoin Sod Extended 100 mg* [Dilantin 100 MG] 100 mg PO TID 10/16/18 [ History] Hx Tetanus, Diphtheria Vaccination/Date Given: Yes Hx Influenza Vaccination/Date Given: Yes Hx Pneumococcal Vaccination/Date Given: No - Review of Systems Constitutional: No Fever, No Chills Eyes: No Symptoms Ears, Nose, & Throat: No Symptoms Respiratory: No Cough, No Dyspnea Cardiac: No Chest Pain, No Edema, No Syncope Abdominal/Gastrointestinal: No Abdominal Pain, No Nausea, No Vomiting, No Diarrhea Genitourinary Symptoms: No Dysuria Musculoskeletal: Fall, No Back Pain, No Neck Pain Skin: No Rash Neurological: Gait Changes, No Dizziness, No Focal Weakness, No Seizure, No Sensory Changes Psychological: No Symptoms Endocrine: No Symptoms All Other Systems: Reviewed and Negative - Past Medical History Pertinent Past Medical History: No Neurological History: Seizures ENT History: No Pertinent History Cardiac History: Coronary Artery Disease Respiratory History: No Pertinent History Endocrine Medical History: No Pertinent History Musculoskeletal History: No Pertinent History GI Medical History: No Pertinent History History: No Pertinent History Psycho-Social History: No Pertinent History Male Reproductive Disorders: No Pertinent History - Past Surgical History Past Surgical History: No Neuro Surgical History: No Pertinent History Cardiac: No Pertinent History Respiratory: No Pertinent History Gastrointestinal: No Pertinent History Genitourinary: No Pertinent History Musculoskeletal: No Pertinent History Male Surgical History: No Pertinent History - Social History Smoking Status: Current every day smoker How long have you smoked: 53 Exposure to second hand smoke: Yes Drug Use: other Patient Lives Alone: No - Nursing Vital Signs Nursing Vital Signs: Initial Vital Signs Temperature 98.2 F 12/23/18 16:07 Pulse Rate 75 12/23/18 16:07 Respiratory Rate 16 12/23/18 16:07 Blood Pressure 232/96 12/23/18 16:07 O2 Sat by Pulse Oximetry 96 12/23/18 16:07 - Physical Exam General Appearance: no apparent distress, alert Eye Exam: PERRL/EOMI, eyes nml inspection Ears, Nose, Throat Exam: normal ENT inspection, TMs normal, pharynx normal, moist mucous membranes Neck Exam: normal inspection, non-tender, supple, full range of motion Respiratory Exam: normal breath sounds, lungs clear, No respiratory distress Cardiovascular Exam: regular rate/rhythm, normal heart sounds, normal peripheral pulses Gastrointestinal/Abdomen Exam: soft, normal bowel sounds, No tenderness, No mass Back Exam: normal inspection, normal range of motion, No CVA tenderness, No vertebral tenderness Extremity Exam: normal inspection, normal range of motion, pelvis stable Neurologic Exam: alert, oriented x 3, cooperative, normal mood/affect, nml cerebellar function, nml station & gait, sensation nml, No motor deficits Skin Exam: normal color, warm, dry, No rash Lymphatic Exam: No adenopathy SpO2: 96 - Course Nursing assessment & vital signs reviewed: Yes EKG Interpreted by Me: Sinus Rhythm - Radiology Exams Chest X-ray Interpretation: Reviewed by me - CT Exams Head CT Interpretation: Tele-radiologist Report (senile changes) Ordered Tests: Active Orders 24 hr Category Date Time Status Cello Teacher STAT Care 12/23/18 16:27 Active EKG-ER Only STAT Care 12/23/18 16:26 Active IV Insertion STAT Care 12/23/18 16:26 Active Oxygen-ED Only Nasal Cannula 2 lpm Care 12/23/18 16:26 Active CHEST 1 VIEW (PORTABLE) Stat Exams 12/23/18 16:27 Taken HEAD WITHOUT CONTRAST [CT] Stat Exams 12/23/18 16:27 Taken CBC W DIFF Stat Lab 12/23/18 16:41 Completed CMP Stat Lab 12/23/18 16:41 Completed Medication Summary Discontinued Medications Generic Name Dose Route Start Last Admin Trade Name Coco PRN Reason Stop Dose Admin Fosphenytoin Sodium Confirm 12/23/18 17:35 Cerebyx 50 Mg/Ml Administered 12/23/18 17:36 Dose 500 mg .ROUTE .STK-MED ONE Sodium Chloride 1,000 mls @ 999 mls/hr 12/23/18 16:26 12/23/18 17:41 Sodium Chloride 0.9% 1000 Ml IV 12/23/18 17:26 Infused .Q1H1M STA Infusion Sodium Chloride Confirm 12/23/18 16:30 Sodium Chloride 0.9% 1000 Ml Administered 12/23/18 16:31 Dose 1,000 mls @ ud .ROUTE .STK-MED ONE Fosphenytoin Sodium 500 mg/ 110 mls @ 300 mls/hr 12/23/18 17:10 12/23/18 17: 45 Sodium Chloride IV 12/23/18 17:31 300 mls/hr STAT ONE Administration Sodium Chloride Confirm 12/23/18 17:35 Sodium Chloride 0.9% 100 Ml Ivpb Administered 12/23/18 17:36 Dose 100 mls @ ud IV .STK-MED ONE Lab/Rad Data: Laboratory Result Diagrams 12/23/18 16:41 12/23/18 16:41 Laboratory Results 12/23/18 12/23/18 12/23/18 Range/Units 16:41 16:41 16:41 WBC 7.7 (4.0-10.5) K/mm3 RBC 4.40 (4.1-5.6) M/mm3 Hgb 12.4 L (12.5-18.0) gm/dl Hct 37.2 L (42-50) % MCV 84.5 (78-100) fl MCH 28.1 (26-32) pg MCHC 33.3 (32-36) g/dl RDW 18.2 H (11.5-14.0) % Plt Count 226 (150-450) K/mm3 MPV 9.7 H (6-9.5) fl Gran % 71.5 H (36.0-66.0) % Eos # (Auto) 0.12 (0-0.5) Absolute Lymphs (auto) 1.31 (1.0-4.6) Absolute Monos (auto) 0.73 (0.0-1.3) Lymphocytes % 17.0 L (24.0-44.0) % Monocytes % 9.5 (0.0-12.0) % Eosinophils % 1.6 (0.00-5.0) % Basophils % 0.4 (0.0-0.4) % Absolute Granulocytes 5.51 (1.4-6.9) Basophils # 0.03 (0-0.4) Sodium 139 (137-145) mmol/L Potassium 3.8 (3.5-5.1) mmol/L Chloride 103 (98-107) mmol/L Carbon Dioxide 29 (22-30) mmol/L Anion Gap 11.3 (5-15) MEQ/L BUN 15 (9-20) mg/dL Creatinine 0.67 (0.66-1.25) mg/dL Estimated GFR > 60.0 ML/MIN Glucose 94 (74-106) mg/dL Calcium 9.4 (8.4-10.2) mg/dL Total Bilirubin 0.50 (0.2-1.3) mg/dL AST 20 (17-59) U/L ALT 13 (0-50) U/L Alkaline Phosphatase 86 (38-126) U/L Serum Total Protein 6.9 (6.3-8.2) g/dL Albumin 3.8 (3.5-5.0) g/dL Phenytoin 7.3 L (10-20) ug/mL - Progress Progress: improved Discussed with Dr.: Patsy Gotti Will see patient in: hospital (observation) Counseled pt/family regarding: lab results, diagnosis, need for follow-up, rad results - Departure Departure Disposition: Observation Clinical Impression: Chronic cerebral ischemia, Falls frequently, Subtherapeutic serum dilantin level Altered mental status Qualifiers: Altered mental status type: transient alteration of awareness Qualified Code(s) : R40.4 - Transient alteration of awareness Condition: Stable Critical Care Time: Yes Critical Care Time(excluding separately billable procedures): 30-74 minutes Referrals: MALLORY BOLANOS MD [Primary Care Provider] - Instructions: Dementia (DC)
[2018-12-23 16:47] LABS: BASOPHIL % 0.4 % (0.0-0.4); Basophil (Absolute #) 0.03 (0-0.4); Eosinophil % 1.6 % (0.00-5.0); Eosinophil (Absolute #) 0.12 (0-0.5); Granulocyte Absolute (ANC) 5.51 (1.4-6.9); Granulocytes % 71.5 % (36.0-66.0); Hematocrit 37.2 % (42-50); Hemoglobin 12.4 gm/dl (12.5-18.0); Lymphocyte (Absolute #) 1.31 (1.0-4.6); Mean Cell Volume 84.5 fl (78-100); Mean Corpuscular Hgb Concent. 33.3 g/dl (32-36); Mean Platelet Volume 9.7 fl (6-9.5); Monocyte (Absolute #) 0.73 (0.0-1.3); Monocytes % 9.5 % (0.0-12.0); Platelet Count 226 K/mm3 (150-450); Red Cell Distribution Width 18.2 % (11.5-14.0); White Blood Count 7.7 K/mm3 (4.0-10.5)
[2018-12-23 16:53] LABS: Mean Corpuscular Hemoglobin 28.1 pg (26-32)
[2018-12-23 16:57] LABS: ALBUMIN 3.8 g/dL (3.5-5.0); ALKALINE PHOSPHATASE 86 U/L (38-126); ANION GAP 11.3 MEQ/L (5-15); BLOOD UREA NITROGEN 15 mg/dL (9-20); CHLORIDE 103 mmol/L (98-107); Calcium 9.4 mg/dL (8.4-10.2); Carbon Dioxide 29 mmol/L (22-30); Creatinine 1 0.67 mg/dL (0.66-1.25); Glucose 94 mg/dL (74-106); Potassium 3.8 mmol/L (3.5-5.1); SGOT/AST 20 U/L (17-59); SGPT/ALT 13 U/L (0-50); SODIUM 139 mmol/L (137-145); Total Protein 6.9 g/dL (6.3-8.2)
[2018-12-23] MEDS ORDERED: cereBYX 50 MG/ML*** 500 MG in Sodium Chloride 0.9% 100 ML IVPB 100 ML IV ONE (17:10)
[2018-12-23] MEDS ORDERED: cereBYX 50 MG/ML ONE (17:35)
[2018-12-23] MEDS ORDERED: Sodium Chloride 0.9% 100 ML IVPB 100 ML IV ONE (17:35)
[2018-12-23] MEDS ORDERED: TYLENOL 325 MG PO PRN (19:46)
[2018-12-23 21:54] LABS: Appearance CLEAR (CLEAR); Bilirubin NEGATIVE (NEGATIVE); Blood SMALL Ery/ul (0-5); Glucose NEGATIVE (NEGATIVE); Ketones NEGATIVE (NEGATIVE); Leukocyte Esterase NEGATIVE (NEGATIVE); Mucus SLIGHT /HPF (NEGATIVE); Nitrite NEGATIVE (NEGATIVE); Protein,Urine Dip NEGATIVE (Negative); Specific Gravity 1.006 (1.005-1.025); Urobilinogen NEGATIVE mg/dL (0-1)
[2018-12-23] MEDS: Dilantin 100 MG PO SCH (22:11)
[2018-12-23] MEDS: Sodium Chloride 0.9% 1000 ML 1,000 ML IV SCH (22:12)
[2018-12-24] MEDS: Sodium Chloride 0.9% 1000 ML 1,000 ML IV SCH (05:31)
[2018-12-24 05:55] LABS: BASOPHIL % 0.4 % (0.0-0.4); Basophil (Absolute #) 0.03 (0-0.4); Eosinophil % 3.2 % (0.00-5.0); Eosinophil (Absolute #) 0.22 (0-0.5); Granulocyte Absolute (ANC) 3.82 (1.4-6.9); Granulocytes % 55.9 % (36.0-66.0); Hematocrit 35.5 % (42-50); Hemoglobin 11.1 gm/dl (12.5-18.0); Lymphocyte (Absolute #) 2.02 (1.0-4.6); Lymphocytes % 29.5 % (24.0-44.0); Mean Cell Volume 86.6 fl (78-100); Mean Corpuscular Hgb Concent. 31.3 g/dl (32-36); Mean Platelet Volume 10.1 fl (6-9.5); Monocyte (Absolute #) 0.75 (0.0-1.3); Platelet Count 218 K/mm3 (150-450); Red Cell Distribution Width 18.3 % (11.5-14.0); White Blood Count 6.8 K/mm3 (4.0-10.5)
[2018-12-24 06:18] LABS: ANION GAP 9.7 MEQ/L (5-15); BLOOD UREA NITROGEN 12 mg/dL (9-20); CHLORIDE 105 mmol/L (98-107); Calcium 9.1 mg/dL (8.4-10.2); Carbon Dioxide 29 mmol/L (22-30); Creatinine 1 0.65 mg/dL (0.66-1.25); Glucose 87 mg/dL (74-106); Potassium 3.8 mmol/L (3.5-5.1); SODIUM 140 mmol/L (137-145)
[2018-12-24] MEDS ORDERED: TYLENOL 325 MG PO PRN (07:01)
--- NOTE | 2018-12-24 08:37 | XRAY ---
Indication: Confusion. Comparison: October 16, 2018. Portable chest less inflated and remains clear. Heart and mediastinal structures within normal limits for AP portable technique. Bony thorax intact again with osteopenia and degenerative changes. No new/acute findings.
--- NOTE | 2018-12-24 08:40 | XRAY ---
Indication: Confusion. Multiple contiguous axial images obtained through the head without contrast. Comparison: October 16, 2018. Images through the base of the brain slightly degraded by motion artifact even with repeat CT. Stable global atrophy, moderate periventricular degenerative micro-ischemia bilaterally, remote left brainstem lacunar infarct, and remote right external capsule lacunar infarct. Again no acute intracranial hemorrhage, abnormal extra-axial fluid collection, or mass effect. Fourth ventricle is midline. Bony calvarium intact. Visualized paranasal sinuses and mastoid air cells are clear. Stable right posterior neck sebaceous cyst. Impression: 1. Mild motion artifact. 2. Stable atrophy, degenerative micro-ischemia, and remote lacunar infarcts as detailed. 3. No new or acute intracranial abnormalities. Comment: Preliminary interpretation was made by [facility]. No critical discrepancy. CT DI 60.80
[2018-12-24] MEDS: Dilantin 100 MG PO SCH ×2 (09:41→15:16)
[2018-12-24] MEDS ORDERED: PLAVIX 75 MG Tablet PO SCH (10:00)
[2018-12-24] MEDS ORDERED: ECOTRIN 81 MG PO SCH (10:00)
[2018-12-24] MEDS ORDERED: NON-FORMULARY ITEM (Aspirin [Aspirin] 81 MG) PO SCH (10:00)
[2018-12-24 12:52] VITALS: BP 214/91; PULSE 69; O2SAT 97
--- NOTE | 2018-12-24 15:51 | PCM.SSS ---
History of Present Illness - Chief Complaint Chief Complaint: Patient has multiple falls and consusion at assisted History of Present Illness: 78-year-old male with significant past medical history of seizure disorder and earlier examined dementia was living at group home where group home nurse found him confused and having a multiple falls in last 2-3 days. So patient was brought into the emergency room. Patient is alert, awake, oriented to less and person. Patient denies any complaint. - Review of Systems Constitutional: Lethargy, No Fever, No Chills Eyes: No Symptoms Ears, Nose, & Throat: No Symptoms Respiratory: No Cough, No Short Of Breath Cardiac: No Chest Pain, No Edema, No Syncope Abdominal/Gastrointestinal: No Abdominal Pain, No Nausea, No Vomiting, No Diarrhea Genitourinary Symptoms: No Dysuria Musculoskeletal: No Back Pain, No Neck Pain Skin: No Rash Neurological: Lethargy, No Dizziness, No Focal Weakness, No Sensory Changes Psychological: No Symptoms Endocrine: No Symptoms Hematologic/Lymphatic: No Symptoms Immunological/Allergic: No Symptoms Medications & Allergies Home Medications: Home Medication List Clopidogrel Bisulfate 75 mg [PLAVIX 75 MG Tablet] 75 mg PO DAILY #30 tablet 12/23/14 [Rx Confirmed 12/23/18] Phenytoin Sod Extended 100 mg* [Dilantin 100 MG] 100 mg PO TID 10/16/18 [ History Confirmed 12/23/18] Acetaminophen 325 mg [Tylenol 325 mg] 325 mg PO Q6H PRN 12/23/18 [History Confirmed 12/23/18] Aspirin 81 mg PO DAILY 12/23/18 [History Confirmed 12/23/18] Allergies/Adverse Reactions: Allergies Allergy/AdvReac Type Severity Reaction Status Date / Time No Known Drug Allergies Allergy Verified 12/23/18 19:23 - Past Medical History Past Medical History: No Neurological History: Seizures ENT History: No Pertinent History Cardiac History: Coronary Artery Disease Respiratory History: No Pertinent History Endocrine Medical History: No Pertinent History Musculoskelatal History: No Pertinent History GI Medical History: No Pertinent History History: No Pertinent History Pyscho-Social History: No Pertinent History Male Reproductive Disorders: No Pertinent History - Past Surgical History Past Surgical History: No Neuro Surgical History: No Pertinent History Cardiac History: No Pertinent History Respiratory Surgery: No Pertinent History GI Surgical History: No Pertinent History Genitourinary Surgical Hx: No Pertinent History Musculskeletal Surgical Hx: No Pertinent History Male Surgical History: No Pertinent History - Social History Smoking Status: Former smoker How long have you smoked: 53 Exposure to second hand smoke: Yes Alcohol: Daily Drug Use: other - Physical Exam Vital Signs: Vital Signs - 24 hr Temp Pulse Resp BP BP Pulse Ox 12/24/18 12:00 98.4 F 69 12 214/91 97 12/24/18 07:59 98.5 F 80 18 136/69 96 12/24/18 04:00 98.4 F 69 20 166/79 95 12/23/18 23:40 98.7 F 66 12 163/77 97 12/23/18 20:30 87 174/88 12/23/18 19:24 98.0 F 95 H 16 214/95 94 L 12/23/18 18:31 96 12/23/18 17:54 71 17 185/104 99 12/23/18 17:47 72 16 185/104 99 12/23/18 16:07 98.2 F 75 16 232/96 96 Oxygen-Last 24 hours O2 Percentage 2 Liters = 28% O2 Percentage 2 Liters = 28% O2 Percentage 2 Liters = 28% General Appearance: no apparent distress, alert Neurologic Exam: alert, oriented x 3, cooperative, No motor deficits Eye Exam: PERRL/EOMI, eyes nml inspection Ears, Nose, Throat Exam: normal ENT inspection, TMs normal, pharynx normal, moist mucous membranes Neck Exam: normal inspection, non-tender, supple, full range of motion Respiratory Exam: normal breath sounds, lungs clear, No respiratory distress Cardiovascular Exam: regular rate/rhythm, normal heart sounds, normal peripheral pulses Gastrointestinal/Abdomen Exam: soft, normal bowel sounds, No tenderness, No mass Back Exam: normal inspection, normal range of motion, No CVA tenderness, No vertebral tenderness Extremity Exam: normal inspection, normal range of motion, pelvis stable Skin Exam: normal color, warm, dry, No rash Lymphatic Exam: No adenopathy Results - Labs Lab/Micro Results: Lab Results-Last 24 Hours 12/23/18 12/23/18 12/23/18 Range/Units 16:41 16:41 16:41 WBC 7.7 (4.0-10.5) K/mm3 RBC 4.40 (4.1-5.6) M/mm3 Hgb 12.4 L (12.5-18.0) gm/dl Hct 37.2 L (42-50) % MCV 84.5 (78-100) fl MCH 28.1 (26-32) pg MCHC 33.3 (32-36) g/dl RDW 18.2 H (11.5-14.0) % Plt Count 226 (150-450) K/mm3 MPV 9.7 H (6-9.5) fl Gran % 71.5 H (36.0-66.0) % Eos # (Auto) 0.12 (0-0.5) Absolute Lymphs (auto) 1.31 (1.0-4.6) Absolute Monos (auto) 0.73 (0.0-1.3) Lymphocytes % 17.0 L (24.0-44.0) % Monocytes % 9.5 (0.0-12.0) % Eosinophils % 1.6 (0.00-5.0) % Basophils % 0.4 (0.0-0.4) % Absolute Granulocytes 5.51 (1.4-6.9) Basophils # 0.03 (0-0.4) Sodium 139 (137-145) mmol/L Potassium 3.8 (3.5-5.1) mmol/L Chloride 103 (98-107) mmol/L Carbon Dioxide 29 (22-30) mmol/L Anion Gap 11.3 (5-15) MEQ/L BUN 15 (9-20) mg/dL Creatinine 0.67 (0.66-1.25) mg/dL Estimated GFR > 60.0 ML/MIN Glucose 94 (74-106) mg/dL Calcium 9.4 (8.4-10.2) mg/dL Total Bilirubin 0.50 (0.2-1.3) mg/dL AST 20 (17-59) U/L ALT 13 (0-50) U/L Alkaline Phosphatase 86 (38-126) U/L Serum Total Protein 6.9 (6.3-8.2) g/dL Albumin 3.8 (3.5-5.0) g/dL Prealbumin (17.6-36.0) mg/dL Urine Color (YELLOW) Urine Appearance (CLEAR) Urine pH (5-6) Ur Specific [place] (1.005-1.025) Urine Protein (Negative) Urine Ketones (NEGATIVE) Urine Blood (0-5) Gustavo/ul Urine Nitrite (NEGATIVE) Urine Bilirubin (NEGATIVE) Urine Urobilinogen (0-1) mg/dL Ur Leukocyte Esterase (NEGATIVE) Urine WBC (Auto) (0-5) /HPF Urine RBC (Auto) (0-2) /HPF U Epithel Cells (Auto) (FEW) /HPF Urine Bacteria (Auto) (NEGATIVE) /HPF Urine Mucus (Auto) (NEGATIVE) /HPF Urine Culture Reflexed (NO) Urine Glucose (NEGATIVE) mg/dL Phenytoin 7.3 L (10-20) ug/mL 12/23/18 12/24/18 12/24/18 Range/Units 21:48 04:55 04:55 WBC 6.8 (4.0-10.5) K/mm3 RBC 4.10 (4.1-5.6) M/mm3 Hgb 11.1 L (12.5-18.0) gm/dl Hct 35.5 L (42-50) % MCV 86.6 (78-100) fl MCH 27.0 (26-32) pg MCHC 31.3 L (32-36) g/dl RDW 18.3 H (11.5-14.0) % Plt Count 218 (150-450) K/mm3 MPV 10.1 H (6-9.5) fl Gran % 55.9 (36.0-66.0) % Eos # (Auto) 0.22 (0-0.5) Absolute Lymphs (auto) 2.02 (1.0-4.6) Absolute Monos (auto) 0.75 (0.0-1.3) Lymphocytes % 29.5 (24.0-44.0) % Monocytes % 11.0 (0.0-12.0) % Eosinophils % 3.2 (0.00-5.0) % Basophils % 0.4 (0.0-0.4) % Absolute Granulocytes 3.82 (1.4-6.9) Basophils # 0.03 (0-0.4) Sodium 140 (137-145) mmol/L Potassium 3.8 (3.5-5.1) mmol/L Chloride 105 (98-107) mmol/L Carbon Dioxide 29 (22-30) mmol/L Anion Gap 9.7 (5-15) MEQ/L BUN 12 (9-20) mg/dL Creatinine 0.65 L (0.66-1.25) mg/dL Estimated GFR > 60.0 ML/MIN Glucose 87 (74-106) mg/dL Calcium 9.1 (8.4-10.2) mg/dL Total Bilirubin (0.2-1.3) mg/dL AST (17-59) U/L ALT (0-50) U/L Alkaline Phosphatase (38-126) U/L Serum Total Protein (6.3-8.2) g/dL Albumin (3.5-5.0) g/dL Prealbumin (17.6-36.0) mg/dL Urine Color STRAW (YELLOW) Urine Appearance CLEAR (CLEAR) Urine pH 7.0 (5-6) Ur Specific [place] 1.006 (1.005-1.025) Urine Protein NEGATIVE (Negative) Urine Ketones NEGATIVE (NEGATIVE) Urine Blood SMALL (0-5) Gustavo/ul Urine Nitrite NEGATIVE (NEGATIVE) Urine Bilirubin NEGATIVE (NEGATIVE) Urine Urobilinogen NEGATIVE (0-1) mg/dL Ur Leukocyte Esterase NEGATIVE (NEGATIVE) Urine WBC (Auto) NONE (0-5) /HPF Urine RBC (Auto) NONE (0-2) /HPF U Epithel Cells (Auto) NONE (FEW) /HPF Urine Bacteria (Auto) NONE (NEGATIVE) /HPF Urine Mucus (Auto) SLIGHT (NEGATIVE) /HPF Urine Culture Reflexed NO (NO) Urine Glucose NEGATIVE (NEGATIVE) mg/dL Phenytoin (10-20) ug/mL 12/24/18 12/24/18 Range/Units 04:55 04:55 WBC (4.0-10.5) K/mm3 RBC (4.1-5.6) M/mm3 Hgb (12.5-18.0) gm/dl Hct (42-50) % MCV (78-100) fl MCH (26-32) pg MCHC (32-36) g/dl RDW (11.5-14.0) % Plt Count (150-450) K/mm3 MPV (6-9.5) fl Gran % (36.0-66.0) % Eos # (Auto) (0-0.5) Absolute Lymphs (auto) (1.0-4.6) Absolute Monos (auto) (0.0-1.3) Lymphocytes % (24.0-44.0) % Monocytes % (0.0-12.0) % Eosinophils % (0.00-5.0) % Basophils % (0.0-0.4) % Absolute Granulocytes (1.4-6.9) Basophils # (0-0.4) Sodium (137-145) mmol/L Potassium (3.5-5.1) mmol/L Chloride (98-107) mmol/L Carbon Dioxide (22-30) mmol/L Anion Gap (5-15) MEQ/L BUN (9-20) mg/dL Creatinine (0.66-1.25) mg/dL Estimated GFR ML/MIN Glucose (74-106) mg/dL Calcium (8.4-10.2) mg/dL Total Bilirubin (0.2-1.3) mg/dL AST (17-59) U/L ALT (0-50) U/L Alkaline Phosphatase (38-126) U/L Serum Total Protein (6.3-8.2) g/dL Albumin (3.5-5.0) g/dL Prealbumin 14.48 L (17.6-36.0) mg/dL Urine Color (YELLOW) Urine Appearance (CLEAR) Urine pH (5-6) Ur Specific [place] (1.005-1.025) Urine Protein (Negative) Urine Ketones (NEGATIVE) Urine Blood (0-5) Gustavo/ul Urine Nitrite (NEGATIVE) Urine Bilirubin (NEGATIVE) Urine Urobilinogen (0-1) mg/dL Ur Leukocyte Esterase (NEGATIVE) Urine WBC (Auto) (0-5) /HPF Urine RBC (Auto) (0-2) /HPF U Epithel Cells (Auto) (FEW) /HPF Urine Bacteria (Auto) (NEGATIVE) /HPF Urine Mucus (Auto) (NEGATIVE) /HPF Urine Culture Reflexed (NO) Urine Glucose (NEGATIVE) mg/dL Phenytoin 12.7 (10-20) ug/mL - Radiology Impressions Radiology Exams & Impressions: Radiology Procedures Category Date Time Status CHEST 1 VIEW (PORTABLE) Stat Exams 12/23/18 16:27 Completed HEAD WITHOUT CONTRAST [CT] Stat Exams 12/23/18 16:27 Completed Assessment/Plan (1) Subtherapeutic serum dilantin level Current Visit: Yes Status: Resolved Code(s): R78.89 - FINDING OF OTH SUBSTANCES, NOT NORMALLY FOUND IN BLOOD (2) Chronic cerebral ischemia Current Visit: Yes Status: Chronic Assessment & Plan: Medication Report Aspirin (Ecotrin 81 Mg) 81 mg PO DAILY LEW Stop: 01/23/19 09:59 Last Admin: 12/24/18 09:41 Dose: 81 mg Clopidogrel Bisulfate (Plavix 75 Mg Tablet) 75 mg PO DAILY LEW Stop: 01/23/19 09:59 Last Admin: 12/24/18 09:41 Dose: 75 mg Sodium Chloride (Sodium Chloride 0.9% 1000 Ml) 1,000 mls @ 100 mls/hr IV .Q10H LEW Stop: 01/22/19 18:56 Last Admin: 12/24/18 05:31 Dose: 100 mls/hr Infusion/Titration Document 12/24/18 05:31 BW (Rec: 12/24/18 05:31 BW [email or web address]) Dosing & Rate IV Rate 100 Increase/Decrease Started/Running Cumulative Dose Not Applicable IV Intake Cumulative Intake (Rx) 1,000 Container Volume 1,000 Volume Adjustment/Waste 0 Phenytoin Sodium (Dilantin 100 Mg) 100 mg PO TID LEW Stop: 01/22/19 21:59 Last Admin: 12/24/18 15:16 Dose: 100 mg Discontinued Medications Sodium Chloride (Sodium Chloride 0.9% 1000 Ml) 1,000 mls @ 999 mls/hr IV .Q1H1M STA Stop: 12/23/18 17:26 Last Infusion: 12/23/18 17:41 Dose: 0 mls/hr Infusion/Titration Document 12/23/18 17:41 MH (Rec: 12/23/18 17:46 [email or web address]) Dosing & Rate IV Rate 0 Increase/Decrease Infused Cumulative Dose Not Applicable IV Intake Infusion Intake 1,000 Cumulative Intake (Bag) 1,000 Cumulative Intake (Rx) 1,000 Container Volume 0 Volume Adjustment/Waste 0 Fosphenytoin Sodium 500 mg/ (Sodium Chloride) 110 mls @ 300 mls/hr IV STAT ONE Stop: 12/23/18 17:31 Last Admin: 12/23/18 17:45 Dose: 300 mls/hr ED IV Start & Stop Times Document 12/23/18 17:45 MH (Rec: 06/02/19 17:46 MH [email or web address]) IV Infusion First Hour (1XONLY) (IVPB) IV Infusion Start Date 12/23/18 IV Infusion Start Time 17:46 Med Admininistration (IV,IVP) Document 12/23/18 17:45 MH (Rec: 12/23/18 17:46 MH [email or web address]) Type of Administration Initial IV Push No Code(s): I67.82 - CEREBRAL ISCHEMIA (3) Altered mental status Current Visit: Yes Status: Acute Qualifiers: Altered mental status type: transient alteration of awareness Qualified Code(s): R40.4 - Transient alteration of awareness Code(s): R41.82 - ALTERED MENTAL STATUS, UNSPECIFIED (4) Falls frequently Current Visit: Yes Status: Acute Code(s): R29.6 - REPEATED FALLS Hospital Summary - Hospital Course Hospital Course: Chief Complaint Diagnosis subtherapeutic dilantin level, falls, confusion Allergies Allergy/AdvReac Type Severity Reaction Status Date / Time No Known Drug Allergies Allergy Verified 12/23/18 19:23 Vital Signs (Last 24 hours) Temp Pulse Resp BP BP Pulse Ox 12/24/18 12:00 98.4 F 69 12 214/91 97 12/24/18 07:59 98.5 F 80 18 136/69 96 12/24/18 04:00 98.4 F 69 20 166/79 95 12/23/18 23:40 98.7 F 66 12 163/77 97 12/23/18 20:30 87 174/88 12/23/18 19:24 98.0 F 95 H 16 214/95 94 L 12/23/18 18:31 96 12/23/18 17:54 71 17 185/104 99 12/23/18 17:47 72 16 185/104 99 12/23/18 16:07 98.2 F 75 16 232/96 96 Home Medications Medication Instructions Recorded Confirmed Last Taken Type Acetaminophen 325 mg [Tylenol 325 mg PO Q6H PRN 12/23/18 12/23/18 Unknown History 325 mg] Aspirin 81 mg PO DAILY 12/23/18 12/23/18 Unknown History Current Medications Generic Name Dose Route Start Last Admin Trade Name Freq PRN Reason Stop Dose Admin Acetaminophen 325 mg 12/23/18 19:46 Tylenol 325 Mg PO 01/22/19 19:45 Q6H PRN PRN PAIN, FEVER, HEADACHE Aspirin 81 mg 12/24/18 10:00 12/24/18 09:41 Ecotrin 81 Mg PO 01/23/19 09:59 81 mg DAILY LEW Administration Clopidogrel Bisulfate 75 mg 12/24/18 10:00 12/24/18 09:41 Plavix 75 Mg Tablet PO 01/23/19 09:59 75 mg DAILY LEW Administration Sodium Chloride 1,000 mls @ 100 mls/hr 12/23/18 18:57 12/24/18 05:31 Sodium Chloride 0.9% 1000 Ml IV 01/22/19 18:56 100 mls/hr .Q10H LEW Administration Phenytoin Sodium 100 mg 12/23/18 22:00 12/24/18 15:16 Dilantin 100 Mg PO 01/22/19 21:59 100 mg TID LEW Administration Discontinued Medications Generic Name Dose Route Start Last Admin Trade Name Freq PRN Reason Stop Dose Admin Fosphenytoin Sodium Confirm 12/23/18 17:35 Cerebyx 50 Mg/Ml Administered 12/23/18 17:36 Dose 500 mg .ROUTE .STK-MED ONE Sodium Chloride 1,000 mls @ 999 mls/hr 12/23/18 16:26 12/23/18 17:41 Sodium Chloride 0.9% 1000 Ml IV 12/23/18 17:26 Infused .Q1H1M STA Infusion Sodium Chloride Confirm 12/23/18 16:30 Sodium Chloride 0.9% 1000 Ml Administered 12/23/18 16:31 Dose 1,000 mls @ ud .ROUTE .STK-MED ONE Fosphenytoin Sodium 500 mg/ 110 mls @ 300 mls/hr 12/23/18 17:10 12/23/18 17: 45 Sodium Chloride IV 12/23/18 17:31 300 mls/hr STAT ONE Administration Sodium Chloride Confirm 12/23/18 17:35 Sodium Chloride 0.9% 100 Ml Ivpb Administered 12/23/18 17:36 Dose 100 mls @ ud IV .STK-MED ONE Intake & Output (Last 24 hours) 12/22/18 12/23/18 12/24/18 12/25/18 11:59 11:59 11:59 11:59 Intake Total 1025 480 Output Total 450 Balance 575 480 Weight 71.4 kg Laboratory Results (Last 24 hours) 12/24/18 12/24/18 12/24/18 04:55 04:55 04:55 WBC RBC Hgb Hct MCV MCH MCHC RDW Plt Count MPV Gran % Eos # (Auto) Absolute Lymphs (auto) Absolute Monos (auto) Lymphocytes % Monocytes % Eosinophils % Basophils % Absolute Granulocytes Basophils # Sodium 140 Potassium 3.8 Chloride 105 Carbon Dioxide 29 Anion Gap 9.7 BUN 12 Creatinine 0.65 L Estimated GFR > 60.0 Glucose 87 Calcium 9.1 Total Bilirubin AST ALT Alkaline Phosphatase Serum Total Protein Albumin Prealbumin 14.48 L Urine Color Urine Appearance Urine pH Ur Specific [place] Urine Protein Urine Ketones Urine Blood Urine Nitrite Urine Bilirubin Urine Urobilinogen Ur Leukocyte Esterase Urine WBC (Auto) Urine RBC (Auto) U Epithel Cells (Auto) Urine Bacteria (Auto) Urine Mucus (Auto) Urine Culture Reflexed Urine Glucose Phenytoin 12.7 12/24/18 12/23/18 12/23/18 04:55 21:48 16:41 WBC 6.8 RBC 4.10 Hgb 11.1 L Hct 35.5 L MCV 86.6 MCH 27.0 MCHC 31.3 L RDW 18.3 H Plt Count 218 MPV 10.1 H Gran % 55.9 Eos # (Auto) 0.22 Absolute Lymphs (auto) 2.02 Absolute Monos (auto) 0.75 Lymphocytes % 29.5 Monocytes % 11.0 Eosinophils % 3.2 Basophils % 0.4 Absolute Granulocytes 3.82 Basophils # 0.03 Sodium Potassium Chloride Carbon Dioxide Anion Gap BUN Creatinine Estimated GFR Glucose Calcium Total Bilirubin AST ALT Alkaline Phosphatase Serum Total Protein Albumin Prealbumin Urine Color STRAW Urine Appearance CLEAR Urine pH 7.0 Ur Specific [place] 1.006 Urine Protein NEGATIVE Urine Ketones NEGATIVE Urine Blood SMALL Urine Nitrite NEGATIVE Urine Bilirubin NEGATIVE Urine Urobilinogen NEGATIVE Ur Leukocyte Esterase NEGATIVE Urine WBC (Auto) NONE Urine RBC (Auto) NONE U Epithel Cells (Auto) NONE Urine Bacteria (Auto) NONE Urine Mucus (Auto) SLIGHT Urine Culture Reflexed NO Urine Glucose NEGATIVE Phenytoin 7.3 L 12/23/18 12/23/18 16:41 16:41 WBC 7.7 RBC 4.40 Hgb 12.4 L Hct 37.2 L MCV 84.5 MCH 28.1 MCHC 33.3 RDW 18.2 H Plt Count 226 MPV 9.7 H Gran % 71.5 H Eos # (Auto) 0.12 Absolute Lymphs (auto) 1.31 Absolute Monos (auto) 0.73 Lymphocytes % 17.0 L Monocytes % 9.5 Eosinophils % 1.6 Basophils % 0.4 Absolute Granulocytes 5.51 Basophils # 0.03 Sodium 139 Potassium 3.8 Chloride 103 Carbon Dioxide 29 Anion Gap 11.3 BUN 15 Creatinine 0.67 Estimated GFR > 60.0 Glucose 94 Calcium 9.4 Total Bilirubin 0.50 AST 20 ALT 13 Alkaline Phosphatase 86 Serum Total Protein 6.9 Albumin 3.8 Prealbumin Urine Color Urine Appearance Urine pH Ur Specific [place] Urine Protein Urine Ketones Urine Blood Urine Nitrite Urine Bilirubin Urine Urobilinogen Ur Leukocyte Esterase Urine WBC (Auto) Urine RBC (Auto) U Epithel Cells (Auto) Urine Bacteria (Auto) Urine Mucus (Auto) Urine Culture Reflexed Urine Glucose Phenytoin Orders (Last 24 hours) Category Date Time Status Loan Originator STAT Care 12/23/18 16:27 Completed Code Status Order ROUTINE Care 12/23/18 18:57 Active EKG-ER Only STAT Care 12/23/18 16:26 Completed Fall Protocol Q1H Care 12/23/18 18:57 Active IV Care Q6H Care 12/23/18 18:57 Active IV Insertion STAT Care 12/23/18 16:26 Completed Miscellaneous Nursing Order ROUTINE Care 12/23/18 18:57 Active Nursing [Miscellaneous Nursing Order] ROUTINE Care 12/24/18 14:25 Active Oxygen-ED Only Nasal Cannula 2 lpm Care 12/23/18 16:[address] in Observation ROUTINE Care 12/23/18 18:57 Active [place], Apply ROUTINE Care 12/23/18 18:57 Active cath [Cath for Specimen-Straight] STAT Care 12/23/18 21:00 Active Pantograph Machine Operator/Discharge Plan ROUTINE Cons 12/24/18 10:00 Active Regular Diet Diet 12/23/18 Dinner Active Discharge Routine Discharge 12/24/18 Ordered Discharge/Telephone Order Routine Discharge 12/24/18 Active CHEST 1 VIEW (PORTABLE) Stat Exams 12/23/18 16:27 Completed HEAD WITHOUT CONTRAST [CT] Stat Exams 12/23/18 16:27 Completed BMP AM.LAB Lab 12/24/18 04:55 Completed CBC W DIFF AM.LAB Lab 12/24/18 04:55 Completed CBC W DIFF Stat Lab 12/23/18 16:41 Completed CMP Stat Lab 12/23/18 16:41 Completed Dilantin(Phenytoin) Stat Lab 12/23/18 16:41 Completed PHENYTOIN [Dilantin(Phenytoin)] Routine Lab 12/24/18 04:55 Completed PREALBUMIN Routine Lab 12/24/18 04:55 Completed UA W/RFX UR CULTURE Stat Lab 12/23/18 21:48 Completed Acetaminophen 325 mg [Tylenol 325 mg] Med 12/23/18 19:46 Active 325 mg PO Q6H PRN PRN Aspirin EC 81 mg [Ecotrin 81 mg] Med 12/24/18 10:00 Active 81 mg PO DAILY Clopidogrel Bisulfate 75 mg [PLAVIX 75 MG Tablet] Med 12/24/18 10:00 Active 75 mg PO DAILY Fosphenytoin Sodium 50 mg/ml [cereBYX 50 MG/ML] Med 12/23/18 17:35 Discontinued 500 mg .ROUTE .STK-MED ONE Fosphenytoin Sodium 50 mg/ml [cereBYX 50 MG/ML] Med 12/23/18 17:10 Discontinued 500 mg NaCl 0.9% 100Ml [Sodium Chloride 0.9% 100 ML IVPB] 100 ml IV STAT NaCl 0.9% 1000 ml [Sodium Chloride 0.9% 1000 ML] 1,000 Med 12/23/18 16:30 Discontinued ml .ROUTE UD NaCl 0.9% 1000 ml [Sodium Chloride 0.9% 1000 ML] 1,000 Med 12/23/18 18:57 Active ml IV 100 mls/hr NaCl 0.9% 1000 ml [Sodium Chloride 0.9% 1000 ML] 1,000 Med 12/23/18 16:26 Discontinued ml IV 999 mls/hr NaCl 0.9% 100Ml [Sodium Chloride 0.9% 100 ML IVPB] 100 Med 12/23/18 17:35 Discontinued ml IV UD Phenytoin Sod Extended 100 mg* [Dilantin 100 MG] Med 12/23/18 22:00 Active 100 mg PO TID OT Screen per Nursing Assess ONCE OT 12/24/18 10:00 Active PT Screen per Nursing Assess ONCE PT 12/24/18 10:00 Completed Patient Care Notes (Last 24 hours) 12/24/18 15:08 Case Management Note by Tala Woo Addendum entered by Tala Woo 12/24/18 15:16: Made POA aware that pt. has an appt. w/ a surgeon to evaluate removing the subcutaneous cyst on posterior rt neck. Original Note: S/W [facility] and they have accepted pt today. They will assist w/ getting Medicaid set up for the pt. 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 S/W pt's POA (Jerson Garcia) re: D/C plan and he is agreeable w/ it. Pt. remains confused to place and time, but is oriented to self. He is unable to make decisions for himself at this time. Initialized on 12/24/18 15:08 - END OF NOTE 12/24/18 12:03 Case Management Note by Tala Woo S/W pt's son and POAJerson (ph#: [phone]) re: need for SNF placement. He would like the pt to go to [facility], if possible and help w/ securing financial assistance if possible. S/W Kofi at [facility] re: placement and she stated that she would come to assess the pt. Initialized on 12/24/18 12:03 - END OF NOTE 12/24/18 11:46 Case Management Note by Dari Dos Santos LEVEL I AND LEVEL OF CARE QUEUED FOR REVIEW. Initialized on 12/24/18 11:46 - END OF NOTE - Vitals & Intake/Output Vital Signs: Vital Signs Temperature 98.4 F 12/24/18 12:00 Pulse Rate 69 12/24/18 12:00 Respiratory Rate 12 12/24/18 12:00 Blood Pressure 214/91 12/24/18 12:00 O2 Sat by Pulse Oximetry 97 12/24/18 12:00 Oxygen-Last Documented O2 Percentage 2 Liters = 28% Intake & Output: Intake & Output 12/22/18 12/23/18 12/24/18 12/25/18 11:59 11:59 11:59 11:59 Intake Total 1025 480 Output Total 450 Balance 575 480 Weight 71.4 kg - Lab Result Diagrams: 12/24/18 04:55 12/24/18 04:55 Lab Results-Last 24 Hrs: Lab Results-Last 24 Hours 12/23/18 12/23/18 12/23/18 Range/Units 16:41 16:41 16:41 WBC 7.7 (4.0-10.5) K/mm3 RBC 4.40 (4.1-5.6) M/mm3 Hgb 12.4 L (12.5-18.0) gm/dl Hct 37.2 L (42-50) % MCV 84.5 (78-100) fl MCH 28.1 (26-32) pg MCHC 33.3 (32-36) g/dl RDW 18.2 H (11.5-14.0) % Plt Count 226 (150-450) K/mm3 MPV 9.7 H (6-9.5) fl Gran % 71.5 H (36.0-66.0) % Eos # (Auto) 0.12 (0-0.5) Absolute Lymphs (auto) 1.31 (1.0-4.6) Absolute Monos (auto) 0.73 (0.0-1.3) Lymphocytes % 17.0 L (24.0-44.0) % Monocytes % 9.5 (0.0-12.0) % Eosinophils % 1.6 (0.00-5.0) % Basophils % 0.4 (0.0-0.4) % Absolute Granulocytes 5.51 (1.4-6.9) Basophils # 0.03 (0-0.4) Sodium 139 (137-145) mmol/L Potassium 3.8 (3.5-5.1) mmol/L Chloride 103 (98-107) mmol/L Carbon Dioxide 29 (22-30) mmol/L Anion Gap 11.3 (5-15) MEQ/L BUN 15 (9-20) mg/dL Creatinine 0.67 (0.66-1.25) mg/dL Estimated GFR > 60.0 ML/MIN Glucose 94 (74-106) mg/dL Calcium 9.4 (8.4-10.2) mg/dL Total Bilirubin 0.50 (0.2-1.3) mg/dL AST 20 (17-59) U/L ALT 13 (0-50) U/L Alkaline Phosphatase 86 (38-126) U/L Serum Total Protein 6.9 (6.3-8.2) g/dL Albumin 3.8 (3.5-5.0) g/dL Prealbumin (17.6-36.0) mg/dL Urine Color (YELLOW) Urine Appearance (CLEAR) Urine pH (5-6) Ur Specific [place] (1.005-1.025) Urine Protein (Negative) Urine Ketones (NEGATIVE) Urine Blood (0-5) Gustavo/ul Urine Nitrite (NEGATIVE) Urine Bilirubin (NEGATIVE) Urine Urobilinogen (0-1) mg/dL Ur Leukocyte Esterase (NEGATIVE) Urine WBC (Auto) (0-5) /HPF Urine RBC (Auto) (0-2) /HPF U Epithel Cells (Auto) (FEW) /HPF Urine Bacteria (Auto) (NEGATIVE) /HPF Urine Mucus (Auto) (NEGATIVE) /HPF Urine Culture Reflexed (NO) Urine Glucose (NEGATIVE) mg/dL Phenytoin 7.3 L (10-20) ug/mL 12/23/18 12/24/18 12/24/18 Range/Units 21:48 04:55 04:55 WBC 6.8 (4.0-10.5) K/mm3 RBC 4.10 (4.1-5.6) M/mm3 Hgb 11.1 L (12.5-18.0) gm/dl Hct 35.5 L (42-50) % MCV 86.6 (78-100) fl MCH 27.0 (26-32) pg MCHC 31.3 L (32-36) g/dl RDW 18.3 H (11.5-14.0) % Plt Count 218 (150-450) K/mm3 MPV 10.1 H (6-9.5) fl Gran % 55.9 (36.0-66.0) % Eos # (Auto) 0.22 (0-0.5) Absolute Lymphs (auto) 2.02 (1.0-4.6) Absolute Monos (auto) 0.75 (0.0-1.3) Lymphocytes % 29.5 (24.0-44.0) % Monocytes % 11.0 (0.0-12.0) % Eosinophils % 3.2 (0.00-5.0) % Basophils % 0.4 (0.0-0.4) % Absolute Granulocytes 3.82 (1.4-6.9) Basophils # 0.03 (0-0.4) Sodium 140 (137-145) mmol/L Potassium 3.8 (3.5-5.1) mmol/L Chloride 105 (98-107) mmol/L Carbon Dioxide 29 (22-30) mmol/L Anion Gap 9.7 (5-15) MEQ/L BUN 12 (9-20) mg/dL Creatinine 0.65 L (0.66-1.25) mg/dL Estimated GFR > 60.0 ML/MIN Glucose 87 (74-106) mg/dL Calcium 9.1 (8.4-10.2) mg/dL Total Bilirubin (0.2-1.3) mg/dL AST (17-59) U/L ALT (0-50) U/L Alkaline Phosphatase (38-126) U/L Serum Total Protein (6.3-8.2) g/dL Albumin (3.5-5.0) g/dL Prealbumin (17.6-36.0) mg/dL Urine Color STRAW (YELLOW) Urine Appearance CLEAR (CLEAR) Urine pH 7.0 (5-6) Ur Specific [place] 1.006 (1.005-1.025) Urine Protein NEGATIVE (Negative) Urine Ketones NEGATIVE (NEGATIVE) Urine Blood SMALL (0-5) Gustavo/ul Urine Nitrite NEGATIVE (NEGATIVE) Urine Bilirubin NEGATIVE (NEGATIVE) Urine Urobilinogen NEGATIVE (0-1) mg/dL Ur Leukocyte Esterase NEGATIVE (NEGATIVE) Urine WBC (Auto) NONE (0-5) /HPF Urine RBC (Auto) NONE (0-2) /HPF U Epithel Cells (Auto) NONE (FEW) /HPF Urine Bacteria (Auto) NONE (NEGATIVE) /HPF Urine Mucus (Auto) SLIGHT (NEGATIVE) /HPF Urine Culture Reflexed NO (NO) Urine Glucose NEGATIVE (NEGATIVE) mg/dL Phenytoin (10-20) ug/mL 12/24/18 12/24/18 Range/Units 04:55 04:55 WBC (4.0-10.5) K/mm3 RBC (4.1-5.6) M/mm3 Hgb (12.5-18.0) gm/dl Hct (42-50) % MCV (78-100) fl MCH (26-32) pg MCHC (32-36) g/dl RDW (11.5-14.0) % Plt Count (150-450) K/mm3 MPV (6-9.5) fl Gran % (36.0-66.0) % Eos # (Auto) (0-0.5) Absolute Lymphs (auto) (1.0-4.6) Absolute Monos (auto) (0.0-1.3) Lymphocytes % (24.0-44.0) % Monocytes % (0.0-12.0) % Eosinophils % (0.00-5.0) % Basophils % (0.0-0.4) % Absolute Granulocytes (1.4-6.9) Basophils # (0-0.4) Sodium (137-145) mmol/L Potassium (3.5-5.1) mmol/L Chloride (98-107) mmol/L Carbon Dioxide (22-30) mmol/L Anion Gap (5-15) MEQ/L BUN (9-20) mg/dL Creatinine (0.66-1.25) mg/dL Estimated GFR ML/MIN Glucose (74-106) mg/dL Calcium (8.4-10.2) mg/dL Total Bilirubin (0.2-1.3) mg/dL AST (17-59) U/L ALT (0-50) U/L Alkaline Phosphatase (38-126) U/L Serum Total Protein (6.3-8.2) g/dL Albumin (3.5-5.0) g/dL Prealbumin 14.48 L (17.6-36.0) mg/dL Urine Color (YELLOW) Urine Appearance (CLEAR) Urine pH (5-6) Ur Specific [place] (1.005-1.025) Urine Protein (Negative) Urine Ketones (NEGATIVE) Urine Blood (0-5) Gustavo/ul Urine Nitrite (NEGATIVE) Urine Bilirubin (NEGATIVE) Urine Urobilinogen (0-1) mg/dL Ur Leukocyte Esterase (NEGATIVE) Urine WBC (Auto) (0-5) /HPF Urine RBC (Auto) (0-2) /HPF U Epithel Cells (Auto) (FEW) /HPF Urine Bacteria (Auto) (NEGATIVE) /HPF Urine Mucus (Auto) (NEGATIVE) /HPF Urine Culture Reflexed (NO) Urine Glucose (NEGATIVE) mg/dL Phenytoin 12.7 (10-20) ug/mL - Radiology Exams Ordered Rad Exams-Entire Visit: Radiology Procedures Category Date Time Status CHEST 1 VIEW (PORTABLE) Stat Exams 12/23/18 16:27 Completed HEAD WITHOUT CONTRAST [CT] Stat Exams 12/23/18 16:27 Completed - Procedures and Test Procedures and Tests throughout Hospitalization: Therapy Orders & Screens 12/24/18 10:00 OT Screen per Nursing Assess ONCE Comment: Protocol Order Physician Instructions: Greater than 3 points order OT Admission Screening Reason For Exam: Triggered on Admission Diagnosis: subtherapeutic dilantin level, falls, confusion Open Wound/Cellutlitis/Pressure Ulcers: No Acute Fx/ORIF/Change in wt bearing status: No Severe MUSCULOSKELETAL pain: No ADL Dysfunction: Yes Acute CVA w/Hemiparesis/Hemiplegia: No Decreased Functional Mobility/Strength: Yes Sprain/Strain: No Acute Post-op Mobility Dysfunction: No Total Points: 4 PT Screen per Nursing Assess ONCE Comment: Protocol Order Physician Instructions: Greater than 3 points order PT Admission Screenin Reason For Exam: Triggered on Admission Diagnosis: subtherapeutic dilantin level, falls, confusion Open Wound/Cellutlitis/Pressure Ulcers: No Acute Fx/ORIF/Change in wt bearing status: No Severe MUSCULOSKELETAL pain: No ADL Dysfunction: Yes Acute CVA w/Hemiparesis/Hemiplegia: No Decreased Functional Mobility/Strength: Yes Sprain/Strain: No Acute Post-op Mobility Dysfunction: No Total Points: 4 - Discharge Discharge Date: 12/24/18 Disposition: PR TO [facility] Condition: Stable Prescriptions: Continue Clopidogrel Bisulfate 75 mg [PLAVIX 75 MG Tablet] 75 mg PO DAILY #30 tablet Phenytoin Sod Extended 100 mg* [Dilantin 100 MG] 100 mg PO TID Aspirin 81 mg PO DAILY Acetaminophen 325 mg [Tylenol 325 mg] 325 mg PO Q6H PRN PRN Reason: Pain Additional Instructions: Please see Dr Henry outpatient for evaluation of enlarged lymph node on posterior right neck and cycts on right posterior head and right shoulder. An appointment is scheduled for 01-02-2019 at 11:20 at the [facility]. Forms: Transfer Record [facility]
== END 2018-12-24 16:19 ==
LOC: ED 16:07 → MED SURG 18:57
PROVIDERS: ADMIT General Practice; ATTEND General Practice
DX: R78.89 Finding of other specified substances, not normally found in blood (principal); I67.82 Cerebral ischemia; R41.82 Altered mental status, unspecified; R29.6 Repeated falls; Z79.01 Long term (current) use of anticoagulants; Z79.899 Other long term (current) drug therapy; R59.9 Enlarged lymph nodes, unspecified; L72.9 Follicular cyst of the skin and subcutaneous tissue, unspecified
CPT/HCPCS: 36000; 36415; 70450; 71045; 80048; 80053; 80185; 81001; 84134; 85025; 93005; 93041; 96360; 96365; 99285; G0378; Q2009; A9270-GY

== ENCOUNTER 2019-02-25 10:01 | Day surgery (SDC) | payer MEDICARE, OTHER ==
--- NOTE | 2019-02-25 08:36 | HP ---
DATE OF SURGERY: 02/25/2019 HISTORY OF PRESENT ILLNESS: The patient is a 78 year-old with increased size and drainage for a while, enlarging neck cyst and another second cyst or nodule. He desires definitive excision. PAST MEDICAL HISTORY: Dementia. He had some convulsions in the past. Atherosclerotic heart disease. Hypertension. PAST SURGICAL HISTORY: MEDICATIONS: Acetaminophen, aspirin, clopidogrel, Depakote, lisinopril, phenytoin. ALLERGIES: NKDA. FAMILY HISTORY: Negative in regards to this problem. SOCIAL HISTORY: No alcohol abuse. REVIEW OF SYSTEMS: Fourteen systems reviewed per admission assessment. [facility] paperwork said he does have some dementia, poor historian. No chest pain or palpitations other systems negative or noncontributory as above and per preadmission questionnaire. PHYSICAL EXAMINATION: GENERAL: No acute distress. HEENT: Sclerae nonicteric. NECK: No JVD. He had some nodules on the back of the neck. He would benefit from excisional biopsy. CHEST: Equal excursion, nonlabored breathing. CVS: Regular rate and rhythm. EXTREMITIES: No significant edema. NEURO: Alert, oriented, moving extremities grossly symmetrically. He does have some dementia. IMPRESSION: Enlarging neck cyst or nodule in need of excisional biopsy. Risks and benefits explained in detail including but not limited to bleeding or infection, risk of wound dehiscence possibly requiring packing, general risk of aches, pains, burning, numbness but not limited to. He understands what we excise likely will not recur but he could get other cysts or nodules adjacent to or elsewhere on his body. He understands and agrees to the planned procedure, will proceed with excisional biopsy of neck cyst or nodule as an outpatient.
[~2019-02-25 10:01] MED LIST: DIPRIVAN 200 MG/20 ML IV ONE; Lactated Ringers 1,000 ML IV ONE; Lactated Ringers 1,000 ML IV SCH; Quelicin Fliptop 200 MG/10 ML ONE; SUBLIMAZE 100 MCG/2 ML ONE; Sensorcaine 0.25% 10 ML ONE; Zemuron 100 MG/10 ML ONE
[2019-02-25] MEDS ORDERED: Lactated Ringers 1,000 ML IV ONE (10:21)
[2019-02-25] MEDS ORDERED: Decadron 4 MG INJ ONE (11:32)
[2019-02-25] MEDS ORDERED: BRIDION 200MG/2ML IV ONE (11:32)
[2019-02-25] MEDS ORDERED: Zofran 4 MG/2 ML VIAL ONE (11:32)
[2019-02-25] MEDS ORDERED: TORAdol 30 mg Injection ONE (11:32)
[2019-02-25] MEDS ORDERED: SUBLIMAZE 100 MCG/2 ML ONE (11:50)
[2019-02-25 13:23] VITALS: O2SAT 97
[2019-02-25 13:52] VITALS: BP 139/67; PULSE 57
--- NOTE | 2019-02-25 14:07 | OP ---
SURGERY DATE/TIME: 02/25/2019 1110 PREOPERATIVE DIAGNOSIS: Enlarging right neck cyst or nodule. POSTOPERATIVE DIAGNOSIS: Enlarging right neck cyst or nodule. PROCEDURE: Excisional biopsy of enlarging right neck ruptured cyst site (approximately 3.5 cm) with intermediate closure. SURGEON: Dr. Bjorn Henry. ANESTHESIA: General. ESTIMATED BLOOD LOSS: Minimal. INDICATIONS: As noted above. Risks and benefits explained in detail and not limited to and consent obtained. DESCRIPTION OF PROCEDURE AND FINDINGS: The patient is taken to the operating room. The site had been confirmed and marked in the preoperative holding area. Taken to the operating room. General anesthesia induced. Placed in lateral position per anesthesia and the OR staff, appropriate padding and position. Prepped and draped in usual sterile fashion. After official time out and no disagreement with planned procedure, small spindle-shaped segment of skin was taken overlying the cyst dissecting down circumferentially around this cyst dissecting off the underlying fascia and subcu. It took some time. It was a little bit lobulated. There was partially ruptured little thick caseous material. The specimen was able to be mobilized off and measured about 3.5 cm in vivo before it started draining more. There was no evidence of any residual cyst wall material in the wound. Copious amount of irrigation irrigating until clear. The wound is then closed in layers. Deep and superficial subcu closed with 3-0 Vicryl. Skin closed with interrupted and vertical mattress with 3-0 Prolene. Sterile dressing applied. Patient tolerated the procedure well. There were no immediate complications. There was no family available to discuss the findings with at this time. His family is to return later to pick him up.
== END 2019-02-25 13:44 ==
LOC: SDC 10:01
PROVIDERS: ATTEND Surgery
DX: L72.0 Epidermal cyst (principal); I10 Essential (primary) hypertension; Z79.899 Other long term (current) drug therapy
CPT/HCPCS: 88304; 88305; 99100; J0330; J1100; J1885; J2405; J2704; J3010